=== PATIENT | female | born 1985 | race Caucasian/White ===

== ENCOUNTER → 2018-07-11 17:50 | Outpatient (CLI) | payer OTHER, SELFPAY ==
[2018-07-11 16:39] VITALS: BMI 25.2
[2018-07-11 18:17] LABS: Absolute Lymphocyte Count 2.74 X10^3/ul (0.83-4.51); Absolute Neutrophil Count 7.4 X10^3/uL (2.0-7.7); Basophil# 0.05 X10^3/uL; Basophil% 0.4 % (0-1); Eosinophil# 0.33 X10^3/uL; Eosinophils% 2.9 % (0-5); Hematocrit 38.6 % (37-47); Hemoglobin 13.1 g/dl (12.0-15.0); Lymphocyte # 2.74 X10^3/ul (4.0); Mean Corp Hgb Conc 33.9 g/gl (32-36); Mean Corpuscular Volume 100.3 fL (81-99); Monocyte# 0.88 X10^3/uL; Monocyte% 7.7 % (0-10); Neutrophil # 7.42 X10^3/uL (2.7-7.7); Neutrophil % 64.8 % (47-70); POSITIVE COUNT NO; POSITIVE DIFFERENTIAL NO; POSITIVE MORPHOLOGY NO; Platelet Count 261 K/mm3 (150-450); RBC Distribution Width CV 11.2 % (11.6-14.6); RBC Distribution Width SD 40.3 fl (35.1-43.9); Red Blood Count 3.85 M/mm3 (4.2-5.4); White Blood Count 11.4 K/mm3 (4.4-11.0)
[2018-07-11 19:44] LABS: HIV - WCH Non-Reactive (Nonreactive); Rubella IgG > 500.0 IU/mL
[2018-07-11 20:15] LABS: Chlamydia Trachomatis by PCR Negative (Negative); Neisserai gonorrhoeae by PCR Negative (Negative); Probe Check PASS; Sample Adequacy Control PASS; Specimen Processing Control PASS
[2018-07-14 11:17] LABS: HEPATITIS B SURFACE AG Negative (Negative)
[2018-07-18 02:32] LABS: Rapid Plasmin Reagin (RPR) NONREACTIVE (NONREACTIVE)
[2018-07-18 11:48] LABS: HPV APTIMA, High Risk Negative (Negative)
--- OUTSIDE RECORDS SUMMARY | 2018-09-05 16:36 | XMS RPT_ITS ---
:1985 Author Organization OHIP Care Team Providers Name Role Phone PHILIPPE AUGUST (PA) Attending Unavailable PHILIPPE AUGUST (PA) Attending Unavailable Jennifer Mays Attending Unavailable DOCTOR, OUT OF TOWN Referring Unavailable Jennifer Mays Attending Unavailable Jennifer Mays Referring Unavailable Primay Care Physicia, No Primary Care Unavailable PROBLEMS PROBLEMS DATE TYPE CONDITION / CODE ATTENDING STATUS SOURCE 07/11/2018 Unknown Z34.90 - Encounter Tabatha, Active [place] for supervision of [facility] normal , Hospital unspecified, Repository unspecified trimester / Z34.90(ICD-10) 07/11/2018 Unknown O99.330 - Smoking Tabahta, Active [facility] (tobacco) [facility] complicating Hospital , Repository unspecified trimester / O99.330(ICD-10) 07/11/2018 Unknown O09.91 - Marcanthony, Active [facility] Supervision of [facility] high risk Hospital , Repository unspecified, first trimester / O09.91(ICD-10) 07/11/2018 Unknown Z3A.10 - 10 weeks Tabatha, Active [facility] gestation of [facility] / Hospital Z3A.10(ICD-10) Repository 07/11/2018 Unknown F41.9 - Anxiety Tabatha, Active [facility] disorder, [facility] unspecified / Hospital F41.9(ICD-10) Repository 07/11/2018 Unknown R87.619 - Tabatha, Active [facility] Unspecified [facility] abnormal Hospital cytological Repository findings in specimens from cervix uteri / R87.619(ICD-10) PROCEDURES PROCEDURES No Procedure Records FoundRESULTS RESULTS CBC W/DIFF, AUTOMATED Collected: 07/11/2018 Status: F Source: [place] 6:01 PM [facility] REPOSITORY TYPE CODE TESTS RESULT OUT OF RANGE REFERENCE UNITS LAB L100.1000 4.4-11.0 K/mm3 High WBC 11.4 LAB L100.1200 4.2-5.4 M/mm3 Low RBC 3.85 LAB L100.1300 12.0-15.0 g/dl Normal HGB 13.1 LAB L100.1400 37-47 % Normal HCT 38.6 LAB L100.1500 81-99 fL High MCV 100.3 LAB L100.1600 27.0-32.0 pg High MCH 34.0 LAB L100.1700 32-36 g/gl Normal MCHC 33.9 LAB L100.1810 11.6-14.6 % Low RDW CV 11.2 LAB L100.1820 35.1-43.9 fl Normal RDW SD 40.3 LAB L100.1900 150-450 K/mm3 Normal PLT 261 LAB L100.2000 6.2-12.0 fl Normal MPV 9.0 LAB L100.2100 47-70 % Normal NEUT% 64.8 LAB L100.2200 19-41 % Normal LY% 24.0 LAB L100.2300 0-10 % Normal MONO% 7.7 LAB L100.2400 0-5 % Normal EO% 2.9 LAB L100.2500 0-1 % Normal BASO% 0.4 LAB L100.2550 0.0-0.9 % Normal IM GRAN % 0.200 Result Comment: IG% - Immature Granulocytes (promyelocytes, myelocytes and metamyelocytes) > 1% indicates that a LEFT SHIFT is Present. LAB L100.2620 2.0-7.7 X10 3/uL Normal Absolute Neut 7.4 LAB L100.2720 0.83-4.51 X10 3/ul Normal Absolute Lymph 2.74 Performed By: #### L100.0100 #### [facility] [address] [place], [place], [id number] TYPE AND SCREEN Collected: 07/11/2018 Status: F Source: [place] 6:01 PM [facility] REPOSITORY Order Comment: Reason for Type AND Screen/Red Cells: TYPE CODE TESTS RESULT OUT OF RANGE REFERENCE UNITS LAB B10.0800 AB Normal BLOOD TYPE GEL POSITIVE LAB B100.4000 Normal Antibody NEGATIVE Screen Performed By: #### B101.7450 #### [facility] [address] [place], [address] RUBELLA IGG Collected: 07/11/2018 Status: F [facility] [place] [facility] Order Comment: Comments: PANORAMA SEND OUT TYPE CODE TESTS RESULT OUT OF RANGE REFERENCE UNITS LAB L509.4000 IU/mL Normal Rubella IgG > 500.0 Result Comment: Antibody results Interpretation of Immune Status < 5 IU/ml Presumed Non-immune 5 - < 10 IU/ml Equivocal > or = 10 IU/ml Presumed Immune Performed By: #### L509.4000, L3890.6005 #### [facility] [place], [place], [id number] HIV - [facility] Collected: 07/11/2018 Status: F Source: [place] 6:[facility] Order Comment: Comments: PANORAMA SEND OUT TYPE CODE TESTS RESULT OUT OF RANGE REFERENCE UNITS LAB L3890.6005 Nonreactive Normal HIV - [facility] Non-Reactive Performed By: #### L509.4000, L3890.6005 #### [facility] [address] [place], [place], [address] HEPATITIS B SURFACE Collected: 07/11/2018 Status: F Source: [place] AG 6:01 PM [facility] REPOSITORY TYPE CODE TESTS RESULT OUT OF RANGE REFERENCE UNITS LAB L3100.0400 Negative Normal HB Negative SURF AG Result Comment: Performed at: [address] [id number] Design Consultant: Gagan Wright PhD, Phone: [phone] Performed By: #### L3100.0390 #### [facility] (refer to report for specific site) refer to report for address and phone number RAPID PLASMIN REAGIN Collected: 07/11/2018 Status: F Source: [place] (RPR) 6:01 PM [facility] REPOSITORY TYPE CODE TESTS RESULT OUT OF REFERENCE UNITS RANGE LAB L700.5000 NONREACTIVE NONREACTIVE Normal RPR Performed By: #### L700.5000 #### [facility] [address] [place], [address] SKIN PASS OPERATOR OFFICE VISIT Observed: 07/11/2018 Status: F Source: [place] REPORT 5:34 PM [facility] REPOSITORY [facility] [address] [place] [address] OFFICE VISIT Date of Service: 07/11/18 MR#: [id number] Acct: [id number] Name: MELISA WORTHY Rep #: [id number] : 1985 Provider: Jennifer Mays MD Age/Sex: 33/F Location: [facility] Status: Signed Intake Vital Signs07/11/18 Height 5 ft 2 in 07/11/18 Weight: 138 lb 07/11/18 Body Mass Index (BMI) 25.2 07/11/18 Blood Pressure 100/60 Intake Visit Reasons: NOB LMP 05/01 Chief Complaint: NEW OB Is patient in pain?: No Allergies No Known Allergies Allergy (Unverified 07/11/18 16:41) Medications vitamin#30 30 mg iron-10 mg iron-folic acid 1 mg- omg3 capsule cap PO cap 07/11/18 [History Confirmed 07/11/18] Last Menstral Period: 05/01/18 Zika: Zika virus screening: Negative : No PFSH PFSH Medical History Anxiety and depression (Acute) Surgical History Abscess of right breast (Acute) H/O: knee surgery (Acute) History of left breast biopsy (Acute) Family History Father Cancer bladder and colorectal cancer Arthritis Grandmother PVC (premature ventricular contraction) Cancer cervical Eccentric personality Dementia Mother Multiple sclerosis Uncle Kidney disease Grandfather Parkinsons Heart disease Sister Cancer ovarian Social History Smoking Status: Heavy Smoker (>10/day) alcohol intake: never substance use type: does not use caffeine: Yes what type of physical activity do you participate in: none seatbelt use: always do you feel safe at home: Yes additional social history: [employer] Patient works at [employer] Pregancy History 1 Elective abortions Hx Para 0 Spontaneous abortions HPI NOB LMP 05/01: Details: MELISA WORTHY is a 33 year old who presents for New OB visit. OB Visit Menstrual History Last Menstral Period: 05/01/18 Reported LMP: definite Normal amount/duration: Yes On hormonal BC at conception: No Antepartum Record Genetic Screening: Congenital Heart Defect: Other, Neural Tube Defect: Other, Hemoglobinopathy Or Carrier: Other, Cystic Fibrosis: Other, Chromosome Abnormality: Other, Wilner-Sachs: Other, Hemophilia: Other, Intellectual Disability/Autism: Other, Recurrent Loss/Stillbirth: Other, Other Structural Defect: Other, Other Genetic Disease: Other, Maternal Metabolic Disorder: Other Infection History: Live with someone with TB or Exposed to TB: No, Patient or Partner has history of Genital Herpes: No, Rash or Viral illness since last mentrual period: No, Prior GBS-Infected child: No, History of STD: No, HIV Infection: No, History of Hepatitis: No, Recent travel outside of [place]: No, Concern for Hep exposure: No, Varicella immune: Yes Medical History Medical History: Positive: Psychiatric, Operations/hospitalizations, Negative: Diabetes, Hypertension, Heart disease, Auto-immune disorder, Kidney disease/UTI, Neurologic/epilepsy, Depression/ depression, Hepatitis/liver disease, Varicosities/phlebitis, Thyroid dysfunction, Trauma/domestic violence, History of blood transfusions, D (Rh) Sensitized, Pulmonary (e.g.,TB,Asthma), Seasonal allergies, Drug/latex allergies/reactions, Breast, Machine Rug Cleaner surgery, Anesthetic complications, History of abnormal pap, Uterine anomaly/douglas, Infertility, Anti-retroviral treatment, Relevant family history, Other ACOG First Trimester First Trimester: Desire for , Alcohol, Tobacco Cessation, Illicit/Recreational Drug/Substance Use, Intimate Partner Violence, Barriers to care, Unstable Housing, Communication Barriers, Environmental/Work Hazards, Anticipated Course of Care, Nurtrition and weight gain, Toxoplasmosis Precations, Use of Any medications, Sexual activity, Exercise, Dental Care, Sauna/Hot tub use, Seat Belt use, Childbirth classes/Hospital facilities, , Travel, Indications for [place] and Screening for Aneuploidy ROS Const Denies fever(s), Reports system reviewed and no additional complaints, except as docu, Reports fatigue Eyes Reports system reviewed and no additional complaints, except as docu ENT Reports system reviewed and no additional complaints, except as docu Card Denies chest pain, Denies shortness of breath Resp Reports system reviewed and no additional complaints, except as docu, Denies shortness of breath, Denies cough GI Reports nausea, Denies abdominal pain Reports system reviewed and no additional complaints, except as docu Musc Reports system reviewed and no additional complaints, except as docu Skin/Breast Reports system reviewed and no additional complaints, except as docu Neuro Yes system reviewed and no additional complaints, except as docu Psych Reports system reviewed and no additional complaints, except as docu Endo Reports fatigue, Reports system reviewed and no additional complaints, except as docu Exam Const General: healthy appearing, comfortable, no acute distress Orientation: alert [facility] Head: normal to inspection, atraumatic, normocephalic Ears: external ears normal, hearing grossly normal bilaterally Nose: nares normal, external nose normal Mouth: oral mucosae normal Teeth and gingiva: dentition normal Eyes General: appearance normal, both eyes and all related structures Neck Neck: no lymphadenopathy, supple, normal visual inspection Thyroid: thyroid normal Chest Chest palpation AND inspection: normal inspection of the chest Breast inspection: normal inspection of the breasts, normal inspection of the axillae Breast palpation: normal palpation of the breasts, normal palpation of the axillae Resp Effort AND Inspection: normal respiratory effort GI Inspection: normal to inspection Palpation: soft, no hepatosplenomegaly General: bladder normal to palpation External Female Exam: normal external appearance, normal appearance of the urethra Urethra: normal appearance of the urethra Speculum Exam - Vagina: normal appearance of the vagina, normal vaginal discharge Speculum Exam - Cervix: normal appearance of the cervix Bimanual Exam- Vagina AND Uterus: bladder normal to palpation, normal bimanual exam, uterus non-tender, other Bimanual Exam- Adnexa, other: adnexae non-tender Skin General: no rashes or lesions noted Neuro Motor: muscle tone normal throughout, no movement abnormalities noted Extrem General: normal to inspection, full ROM Assessment AND Plan Problems 1. Tobacco use affecting , antepartum O99.330 recommend cessation 2. Supervision of high risk in first trimester O09.91 RONY 02/05/19 3. 10 weeks gestation of Z3A.10 NIPT ordered. 4. Anxiety F41.9 no meds 5. Abnormal cervical Papanicolaou smear, unspecified abnormal pap finding R87.619 Plan ACOG trimester education reviewed and updated. see problem list details for updated plan management information and see below for orders placed at this visit. GA appropriate handout given. Orders Orders: Supplemental Info ACOG book given and patient encouraged to read about nutrition, exercise, weight gain, and food avoidance in . Coding Level of Care Code OB Routine Diagnoses Tobacco use affecting , antepartum O99.330 Supervision of high risk in first trimester O09.91 Trimester: first trimester 10 weeks gestation of Z3A.10 Weeks of gestation: 10 weeks Anxiety F41.9 Abnormal cervical Papanicolaou smear, unspecified abnormal pap finding R87.619 Abnormal Pap type: unspecified 07/11/18 1734 <Electronically signed by Jennifer Mays MD> Date Jennifer Mays MD Cosigner Signature: Date (if applicable) CC: CT/NG [facility] BY PCR Collected: 07/11/2018 Status: F Source: [place] 4:20 PM [facility] REPOSITORY TYPE CODE TESTS RESULT OUT OF RANGE REFERENCE UNITS LAB L8200.2100 Negative Normal Chlam Negative Trac PCR LAB L8200.2200 Negative Normal NG by Negative PCR Performed By: #### L8200.2000 #### [facility] [address] [place] [place], [address] PAP IG HPV APTIMA Collected: 07/11/2018 Status: F Source: [place] ,45 4:20 PM [facility] REPOSITORY Order Comment: CYTOLOGY INFORMATION: - CLINICAL INFORMATION: - DATE LMP/MENOPAUSE: - COLLECTION VIAL: Thin Prep Vial - LIFE SCIENCE TAXONOMIST SOURCE: CERVICAL - COLLECTION TECHNIQUE: CX BROOM ONLY Specimen Comment: No. of containers..01 ThinPrep Vial TYPE CODE TESTS RESULT OUT OF RANGE REFERENCE UNITS LAB L7400.0800 . Normal DIAGN Comment Result Comment: NEGATIVE FOR INTRAEPITHELIAL LESION AND MALIGNANCY. LAB L7400.0900 . Normal ADEQ Comment Result Comment: Satisfactory for evaluation. Endocervical and/or squamous metaplastic cells (endocervical component) are present. LAB L7400.1400 . Normal PERFORM Comment Result Comment: Jerry Haynes, Service Operator (ASCP) LAB L7400.2575 . Normal TEST METHOD Comment Result Comment: This liquid based ThinPrep(R) pap test was screened with the use of an image guided system. LAB L7400.2600 . Normal . COMM LAB L7400.2700 . Normal PAPSMR Comment Result Comment: The Pap smear is a screening test designed to aid in the detection of premalignant and malignant conditions of the uterine cervix. It is not a diagnostic procedure and should not be used as the sole means of detecting cervical cancer. Both false-positive and false-negative reports do occur. LAB L7400.2760 Negative Normal HPV APTIMA, Negative HR Result Comment: This test detects fourteen high-risk HPV types (16/18/31/33/35/39/45/ 51/52/56/58/59/66/68) without differentiation. Performed at: - [facility] [id number] Design Consultant: Lulu Saravia MD, Phone: [phone] Performed at: =[facility] [id number] Design Consultant: Lulu Saravia MD, Phone: [phone] Performed By: #### L7400.0280 #### [facility] (refer to report for specific site) refer to report for address and phone number CNOV Observed: 01/19/2018 Status: COMPLETED Source: [place] 11:45 AM [facility] REPOSITORY [facility] MELISA WORTHY ([id number]) 1985 F Date Time Provider Department 01/19/18 11:45 AM LENA FISHER (KARY) [facility] During your visit today, we recorded the following information about you: Temperature Pulse Blood pressure Weight 98.2 degrees 72/minute 116/70 61.2 kg Lena Fisher APRN.CNP 01/19/2018 11:44 AM Signed Subjective HPI HPI Melisa Worthy is a 32 year old female who presents today for CC of bilateral eye drainage/redness. This started today. Has tried nothing. Symptoms are worsened by nothing. Risk factors none known. 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 FAMILY HISTORY Problem Relation Age of Onset - Cancer Mother at 52 of ovarian CA primary with breast mets. - Multiple Sclerosis Mother - Hypertension Paternal Grandmother - Heart Paternal Grandmother a fib - Multiple Sclerosis Brother - Colon Cancer Paternal Grandfather Social History Substance Use Topics - Smoking status: Current Every Day Smoker Packs/day: 1.00 Years: 9.00 Types: Cigarettes - Smokeless tobacco: Never Used - Alcohol use 0.0 oz/week Comment: occas social Review of Systems Constitutional: Negative for chills and fever. HENT: Negative for ear discharge, ear pain and sore throat. Eyes: Positive for discharge and redness. Negative for blurred vision, double vision, photophobia and pain. Neurological: Negative for headaches. Objective Blood pressure 116/70, pulse 72, temperature 36.8 ?C (98.2 ?F), temperature source Tympanic, weight 61.2 kg (135 lb). Physical Exam Constitutional: She is oriented to person, place, and time and well-developed, well-nourished, and in no distress. Vital signs are normal. Non-toxic appearance. She does not have a sickly appearance. No distress. HENT: Right Ear: Hearing, tympanic membrane and external ear normal. Left Ear: Hearing, tympanic membrane, external ear and ear canal normal. Nose: No mucosal edema or sinus tenderness. Mouth/Throat: Uvula is midline, oropharynx is clear and moist and mucous membranes are normal. Eyes: Right eye exhibits discharge (scant). Left eye exhibits discharge (scant). Right conjunctiva is injected. Left conjunctiva is injected. Lymphadenopathy: Right cervical: No superficial cervical adenopathy present. Left cervical: No superficial cervical adenopathy present. No cervical lymphadenopathy bilaterally Neurological: She is oriented to person, place, and time. Prescription instructions reviewed with patient as applicable. Patient advised if symptoms do not improve or if symptoms worsen sooner, to contact the office for further evaluation by their primary care physician. Potential red flag symptoms discussed with the patient. Reviewed appropriate action plan to take if red flag symptoms occur. Patient agreeable to treatment plan. Lena Fisher APRN.KARY Fisher APRN.CNP 01/19/2018 11:41 AM Signed [facility] PATIENT INFO CONJUNCTIVITIS OVERVIEW Conjunctivitis, also called pinkeye, is defined as an inflammation of the conjunctiva. The conjunctiva is the thin membrane that lines the inner surface of the eyelids and the whites of the eyes (called the sclera). Conjunctivitis can affect children and adults. The most common symptoms of conjunctivitis include a red eye and discharge. There are many potential causes of conjunctivitis, including bacterial or viral infections, allergies, or a non-specific condition (eg, a foreign body in the eye). All types of conjunctivitis cause a red eye, although not everyone with a red eye has conjunctivitis. TYPES OF CONJUNCTIVITIS There are four main types of conjunctivitis: bacterial, viral, allergic, and non-specific. Most cases of infectious conjunctivitis are viral in adults and children; however, bacterial conjunctivitis is more common in children than in adults. Viral conjunctivitis ? Viral conjunctivitis is typically caused by a virus that can also cause the common cold. A person may have symptoms of conjunctivitis alone, or as part of a general cold syndrome, with swollen lymph nodes (glands), fever, a sore throat, and runny nose. Viral conjunctivitis is highly contagious. It is spread by contact, usually with objects which have come into contact with the infected person's eye secretions. As examples, the virus can be transmitted when an infected person touches their eye and then touches another surface (eg, door handle) or shares an object that has touched their eye (eg, a towel or pillow case). The most common symptoms of viral conjunctivitis include redness, watery or mucus discharge, and a burning, ze, or gritty feeling in one eye. Some people have morning crusting followed by watery discharge, perhaps with some scant mucus discharge throughout the day. The second eye usually becomes infected within 24 to 48 hours. There is no cure for viral conjunctivitis. Recovery can begin within days, although the symptoms frequently get worse for the first three to five days, with gradual improvement over the following one to two weeks for a total course of two to three weeks. Some people experience morning crusting that continues for up to two weeks after the initial symptoms, although the daytime redness, irritation, and tearing should be much improved. Bacterial conjunctivitis ? Bacterial conjunctivitis is highly contagious, often affecting multiple family members or children within a classroom. Bacterial conjunctivitis is spread by contact, usually with objects which have come into contact with the infected person's eye secretions. As examples, the virus can be transmitted when an infected person touches their eye and then touches another surface (eg, door handle) or shares an object that has touched their eye (eg, a towel or pillow case). The most common symptoms of bacterial conjunctivitis include redness and thick discharge from one eye, although both eyes can become infected. The discharge may be yellow, white, or green, and it usually continues to drain throughout the day. The affected eye often is stuck shut in the morning. Most types of bacterial conjunctivitis resolve quickly and cause no permanent damage when treated with antibiotic eye drops or ointment Non-specific conjunctivitis ? It is possible to develop a red eye and discharge that is not caused by an infection or allergy. The most common causes include one of the following. ? People with a dry eye may have chronic or intermittent redness or discharge. A person whose eyes are irrigated after a chemical splash may have redness and discharge. ? A person with a foreign body (eg, dust, eyelash) in the eye may have redness and discharge for 12 to 24 hours after the object is removed. All of these problems generally improve spontaneously within 24 hours. CONJUNCTIVITIS TREATMENT The treatment of conjunctivitis depends upon the cause. For this reason, it is important to have the correct diagnosis before treatment begins. Viral conjunctivitis treatment ? A topical antihistamine/decongestant eye drop may help to relieve the itching and irritation of viral conjunctivitis. These drops are available without a prescription in most pharmacies. However, particular care must be taken to avoid spreading viral infections from one eye to the other ? apply drops only to affected eye and wash hands thoroughly after application. Similar to cold medicines, this treatment may reduce the symptoms but does not shorten the course of the infection. Another option is to use warm or cool compresses, as needed. The irritation and discharge may get worse for three to five days before getting better, and symptoms can persist for two to three weeks. Bacterial conjunctivitis treatment ? Bacterial conjunctivitis is usually treated with an antibiotic eye drop or ointment. When started early, treatment helps to shorten the duration of symptoms, although most cases do resolve spontaneously if no treatment is used. Adults ? Adults are usually treated with an antibiotic eye drop or ointment for five to seven days. Redness, irritation, and eye discharge should begin to improve within 24 to 48 hours. If there is no improvement or if the condition worsens within this time, the person should be evaluated by an director of catering. Contact lens wearers ? People who wear contact lenses should be evaluated by a healthcare provider before treatment begins; this is to confirm the diagnosis of conjunctivitis and to be sure that another, more serious condition related to contact lens use (an infection of the cornea), is not present. People who wear contact lenses should avoid wearing the lenses during the first 24 hours of treatment, or until the eye is no longer red. The contact case should be thrown away and the contacts disinfected overnight or replaced (if disposable). Return to work/school ? The safest approach to avoid spreading viral and bacterial conjunctivitis to others is to stay home until there is no longer any discharge from the eye(s). However, this is not practical for most students and for those who work outside the home. Most daycare centers and schools require that students receive 24 hours of eye drops or ointment before returning to school. This treatment helps to prevent the spread of bacterial conjunctivitis, but is not necessary or helpful for children with viral conjunctivitis. Viral conjunctivitis is similar to a cold because it spreads easily between people. Younger children, who may not remember to wash their hands or avoid touching their eyes, should probably not attend school until the discharge has resolved. Older students or adults may choose to attend school/work, although they should limit close contact with others. In addition, adults who have contact with the very old, the very young, and people with a weakened immune system should limit contact with these susceptible individuals. Non-specific conjunctivitis treatment ? The conjunctiva heals quickly after it is injured, and non-specific conjunctivitis usually resolves within a few days without any treatment. However, the eye may feel better faster when it is treated with a lubricant, such as drops or ointments. These products are available without a prescription in most pharmacies. Preservative-free preparations are more expensive and are necessary only for people with a severe case of dry eye and those who are allergic to preservatives. Lubricant drops can be used as often as hourly with no side effects. The ointment provides longer lasting relief but blurs vision temporarily. For this reason, some people use ointment only at bedtime. It may be worthwhile to switch brands if one brand of drop or ointment is irritating, since each preparation contains different active and inactive ingredients and preservatives. Antibiotic or steroid eye drops/ointments are not recommended unless there is a specific reason they are needed (eg, a bacterial infection or inflammatory condition). Using these treatments when they are not needed can lead to serious complications. If the symptoms of conjunctivitis do not improve within two weeks, an examination with an director of catering may be recommended. CONJUNCTIVITIS PREVENTION Bacterial and viral conjunctivitis are both highly contagious and spread by direct contact with secretions or contact with contaminated objects. Simple hygiene measures can help minimize transmission to others. ? Adults or children with bacterial or viral conjunctivitis should not share handkerchiefs, tissues, towels, cosmetics, or bed sheets/pillows with uninfected family or friends. ? Hand washing is an essential and highly effective way to prevent the spread of infection. Hands should be wet with water and plain soap, and rubbed together for 15 to 30 seconds. It is not necessary to use antibacterial hand soap. Teach children to wash their hands before and after eating and after touching the eyes, coughing, or sneezing. ? Alcohol-based hand rubs are a good alternative for disinfecting hands if a sink is not available. Hand rubs should be spread over the entire surface of hands, fingers, and wrists until dry, and may be used several times. These rubs can be used repeatedly without skin irritation or loss of effectiveness. Referring Provider: SELF [200] Allergies As of Date: 01/19/2018 Noted Allergy Reaction POLLEN 12/25/2007 5 - Intolerance Comments: Sneezing, runny nose Date Reviewed: 01/19/2018 Reviewed by: Lena Fisher - Fully Assessed Reason for Visit: Eye Problem [43] Cmt: bilateral eye redness and crusty X this morning Primary Visit Diagnosis:Conjunctivitis of both eyes, unspecified conjunctivitis type [H10.9] Order(s):ciprofloxacin HCl (CILOXAN) 0.3 % ophthalmic solutionUse 1-2 Drops in both eyes four times daily for 5 days.Disp: 1 BottleRfl: 0 Prescriptions as of 01/19/2018 Sig: CIPROFLOXACIN 0.3 % EYE DROPS Use 1-2 Drops in both eyes fo* Problem List As Of Date 01/19/2018 Noted Resolved DEPRESSIVE DISORDER NEC [F32.9] INVALID FOR* ANXIETY STATE NOS [F41.1] INVALID FOR* DYSMENORRHEA [N94.6] INVALID FOR* ALLERGIC RHINITIS NOS [J30.9] INVALID FOR* GENITAL WARTS NOS [B07.8] INVALID FOR* Other instructions from your clinician: [facility] PATIENT INFO CONJUNCTIVITIS OVERVIEW Conjunctivitis, also called pinkeye, is defined as an inflammation of the conjunctiva. The conjunctiva is the thin membrane that lines the inner surface of the eyelids and the whites of the eyes (called the sclera). Conjunctivitis can affect children and adults. The most common symptoms of conjunctivitis include a red eye and discharge. There are many potential causes of conjunctivitis, including bacterial or viral infections, allergies, or a non-specific condition (eg, a foreign body in the eye). All types of conjunctivitis cause a red eye, although not everyone with a red eye has conjunctivitis. TYPES OF CONJUNCTIVITIS There are four main types of conjunctivitis: bacterial, viral, allergic, and non-specific. Most cases of infectious conjunctivitis are viral in adults and children; however, bacterial conjunctivitis is more common in children than in adults. Viral conjunctivitis ? Viral conjunctivitis is typically caused by a virus that can also cause the common cold. A person may have symptoms of conjunctivitis alone, or as part of a general cold syndrome, with swollen lymph nodes (glands), fever, a sore throat, and runny nose. Viral conjunctivitis is highly contagious. It is spread by contact, usually with objects which have come into contact with the infected person's eye secretions. As examples, the virus can be transmitted when an infected person touches their eye and then touches another surface (eg, door handle) or shares an object that has touched their eye (eg, a towel or pillow case). The most common symptoms of viral conjunctivitis include redness, watery or mucus discharge, and a burning, ze, or gritty feeling in one eye. Some people have morning crusting followed by watery discharge, perhaps with some scant mucus discharge throughout the day. The second eye usually becomes infected within 24 to 48 hours. There is no cure for viral conjunctivitis. Recovery can begin within days, although the symptoms frequently get worse for the first three to five days, with gradual improvement over the following one to two weeks for a total course of two to three weeks. Some people experience morning crusting that continues for up to two weeks after the initial symptoms, although the daytime redness, irritation, and tearing should be much improved. Bacterial conjunctivitis ? Bacterial conjunctivitis is highly contagious, often affecting multiple family members or children within a classroom. Bacterial conjunctivitis is spread by contact, usually with objects which have come into contact with the infected person's eye secretions. As examples, the virus can be transmitted when an infected person touches their eye and then touches another surface (eg, door handle) or shares an object that has touched their eye (eg, a towel or pillow case). The most common symptoms of bacterial conjunctivitis include redness and thick discharge from one eye, although both eyes can become infected. The discharge may be yellow, white, or green, and it usually continues to drain throughout the day. The affected eye often is stuck shut in the morning. Most types of bacterial conjunctivitis resolve quickly and cause no permanent damage when treated with antibiotic eye drops or ointment Non-specific conjunctivitis ? It is possible to develop a red eye and discharge that is not caused by an infection or allergy. The most common causes include one of the following. ? People with a dry eye may have chronic or intermittent redness or discharge. A person whose eyes are irrigated after a chemical splash may have redness and discharge. ? A person with a foreign body (eg, dust, eyelash) in the eye may have redness and discharge for 12 to 24 hours after the object is removed. All of these problems generally improve spontaneously within 24 hours. CONJUNCTIVITIS TREATMENT The treatment of conjunctivitis depends upon the cause. For this reason, it is important to have the correct diagnosis before treatment begins. Viral conjunctivitis treatment ? A topical antihistamine/decongestant eye drop may help to relieve the itching and irritation of viral conjunctivitis. These drops are available without a prescription in most pharmacies. However, particular care must be taken to avoid spreading viral infections from one eye to the other ? apply drops only to affected eye and wash hands thoroughly after application. Similar to cold medicines, this treatment may reduce the symptoms but does not shorten the course of the infection. Another option is to use warm or cool compresses, as needed. The irritation and discharge may get worse for three to five days before getting better, and symptoms can persist for two to three weeks. Bacterial conjunctivitis treatment ? Bacterial conjunctivitis is usually treated with an antibiotic eye drop or ointment. When started early, treatment helps to shorten the duration of symptoms, although most cases do resolve spontaneously if no treatment is used. Adults ? Adults are usually treated with an antibiotic eye drop or ointment for five to seven days. Redness, irritation, and eye discharge should begin to improve within 24 to 48 hours. If there is no improvement or if the condition worsens within this time, the person should be evaluated by an director of catering. Contact lens wearers ? People who wear contact lenses should be evaluated by a healthcare provider before treatment begins; this is to confirm the diagnosis of conjunctivitis and to be sure that another, more serious condition related to contact lens use (an infection of the cornea), is not present. People who wear contact lenses should avoid wearing the lenses during the first 24 hours of treatment, or until the eye is no longer red. The contact case should be thrown away and the contacts disinfected overnight or replaced (if disposable). Return to work/school ? The safest approach to avoid spreading viral and bacterial conjunctivitis to others is to stay home until there is no longer any discharge from the eye(s). However, this is not practical for most students and for those who work outside the home. Most daycare centers and schools require that students receive 24 hours of eye drops or ointment before returning to school. This treatment helps to prevent the spread of bacterial conjunctivitis, but is not necessary or helpful for children with viral conjunctivitis. Viral conjunctivitis is similar to a cold because it spreads easily between people. Younger children, who may not remember to wash their hands or avoid touching their eyes, should probably not attend school until the discharge has resolved. Older students or adults may choose to attend school/work, although they should limit close contact with others. In addition, adults who have contact with the very old, the very young, and people with a weakened immune system should limit contact with these susceptible individuals. Non-specific conjunctivitis treatment ? The conjunctiva heals quickly after it is injured, and non-specific conjunctivitis usually resolves within a few days without any treatment. However, the eye may feel better faster when it is treated with a lubricant, such as drops or ointments. These products are available without a prescription in most pharmacies. Preservative-free preparations are more expensive and are necessary only for people with a severe case of dry eye and those who are allergic to preservatives. Lubricant drops can be used as often as hourly with no side effects. The ointment provides longer lasting relief but blurs vision temporarily. For this reason, some people use ointment only at bedtime. It may be worthwhile to switch brands if one brand of drop or ointment is irritating, since each preparation contains different active and inactive ingredients and preservatives. Antibiotic or steroid eye drops/ointments are not recommended unless there is a specific reason they are needed (eg, a bacterial infection or inflammatory condition). Using these treatments when they are not needed can lead to serious complications. If the symptoms of conjunctivitis do not improve within two weeks, an examination with an director of catering may be recommended. CONJUNCTIVITIS PREVENTION Bacterial and viral conjunctivitis are both highly contagious and spread by direct contact with secretions or contact with contaminated objects. Simple hygiene measures can help minimize transmission to others. ? Adults or children with bacterial or viral conjunctivitis should not share handkerchiefs, tissues, towels, cosmetics, or bed sheets/pillows with uninfected family or friends. ? Hand washing is an essential and highly effective way to prevent the spread of infection. Hands should be wet with water and plain soap, and rubbed together for 15 to 30 seconds. It is not necessary to use antibacterial hand soap. Teach children to wash their hands before and after eating and after touching the eyes, coughing, or sneezing. ? Alcohol-based hand rubs are a good alternative for disinfecting hands if a sink is not available. Hand rubs should be spread over the entire surface of hands, fingers, and wrists until dry, and may be used several times. These rubs can be used repeatedly without skin irritation or loss of effectiveness. Prescriptions ordered this encounter Disp Refills Start End CIPROFLOXACIN 0.3 % EYE DROPS 1 Janak* 0 01/19/2018 01/24/2018 Route: BOTH EYES Sig: Use 1-2 Drops in both eyes four times daily for 5 days. Encounter Status:Closed by LENA FISHER CNP on 01/19/18 PROGRESS Observed: 01/19/2018 Status: COMPLETED Source: [place] 11:36 AM [facility] REPOSITORY O ID: [id number] Author: Lena Botello) Service: (none) Author Type: Nurse Practitioner Type: Progress Notes Filed: 01/19/2018 11:44 AM Note Text: Subjective HPI HPI Melisa Worthy is a 32 year old female who presents today for CC of bilateral eye drainage/redness. This started today. Has tried nothing. Symptoms are worsened by nothing. Risk factors none known. 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 FAMILY HISTORY Problem Relation Age of Onset - Cancer Mother at 52 of ovarian CA primary with breast mets. - Multiple Sclerosis Mother - Hypertension Paternal Grandmother - Heart Paternal Grandmother a fib - Multiple Sclerosis Brother - Colon Cancer Paternal Grandfather Social History Substance Use Topics - Smoking status: Current Every Day Smoker Packs/day: 1.00 Years: 9.00 Types: Cigarettes - Smokeless tobacco: Never Used - Alcohol use 0.0 oz/week Comment: occas social Review of Systems Constitutional: Negative for chills and fever. HENT: Negative for ear discharge, ear pain and sore throat. Eyes: Positive for discharge and redness. Negative for blurred vision, double vision, photophobia and pain. Neurological: Negative for headaches. Objective Blood pressure 116/70, pulse 72, temperature 36.8 ?C (98.2 ?F), temperature source Tympanic, weight 61.2 kg (135 lb). Physical Exam Constitutional: She is oriented to person, place, and time and well-developed, well-nourished, and in no distress. Vital signs are normal. Non-toxic appearance. She does not have a sickly appearance. No distress. HENT: Right Ear: Hearing, tympanic membrane and external ear normal. Left Ear: Hearing, tympanic membrane, external ear and ear canal normal. Nose: No mucosal edema or sinus tenderness. Mouth/Throat: Uvula is midline, oropharynx is clear and moist and mucous membranes are normal. Eyes: Right eye exhibits discharge (scant). Left eye exhibits discharge (scant). Right conjunctiva is injected. Left conjunctiva is injected. Lymphadenopathy: Right cervical: No superficial cervical adenopathy present. Left cervical: No superficial cervical adenopathy present. No cervical lymphadenopathy bilaterally Neurological: She is oriented to person, place, and time. Prescription instructions reviewed with patient as applicable. Patient advised if symptoms do not improve or if symptoms worsen sooner, to contact the office for further evaluation by their primary care physician. Potential red flag symptoms discussed with the patient. Reviewed appropriate action plan to take if red flag symptoms occur. Patient agreeable to treatment plan. Lena Fisher APRN.KARY PROGRESS Observed: 10/22/2017 Status: COMPLETED Source: [place] 3:36 PM [facility] REPOSITORY O ID: [id number] Author: Philippe August (Pa) Service: (none) Author Type: Physician Rn Clinical Resource Type: Progress Notes Filed: 10/22/2017 3:41 PM Note Text: FOLLOW UP VISIT - ABSCESS NAME: Melisa Dowd Deacon [facility] NO.: [id number] DATE OF SERVICE: 10/21/2017 : 1985 REFERRING PHYSICIAN: No Pcp Melisa is a patient I am following for an abscess on her right breast. I performed an incision and drainage of the right breast abscess on 10/14/17, she was noted to have a ruptured infected sebaceous cyst which was debrided. The patient notes no complaints of fever since the procedure. Pain has been minimal. VITALS: Last menstrual period 09/27/2017. On examination, the incision site is viable with no drainage noted. Assessment IMPRESSION: Status post incision and drainage of right breast abscess/infected sebaceous cyst PLAN: If there are any problems or signs of worsening wound infection, the patient is to contact me immediately. Dressing should be changed once daily or more often if it becomes soaked. We discussed possibility of cyst recurrence, patient instructed to follow up if a new cyst forms in this area for definitive excision. Of note patient is also due for follow-up ultrasound imaging of the left breast per Dr. Ng as she had a biopsy last year. I have discussed this with the patient who stated she will have this done. Diagnoses: (L72.3, L08.9) Infected sebaceous cyst (primary encounter diagnosis) Return to Clinic: The patient is instructed to follow- up with me as needed. Philippe August PA-C CNOV Observed: 10/21/2017 Status: COMPLETED Source: [place] 3:15 PM [facility] REPOSITORY Office Visit (GENSWS) MELISA WORTHY ([id number]) 1985 F Date Time Provider Department 10/21/17 3:15 PM PHILIPPE AUGUST (PA) [facility] During your visit today, we recorded the following information about you: Philippe August PA-C 10/22/2017 3:41 PM Signed FOLLOW UP VISIT - ABSCESS NAME: Melisafarheen Worthy CLINIC NO.: [id number] DATE OF SERVICE: 10/21/2017 : 1985 REFERRING PHYSICIAN: No Pcp Melisa is a patient I am following for an abscess on her right breast. I performed an incision and drainage of the right breast abscess on 10/14/17, she was noted to have a ruptured infected sebaceous cyst which was debrided. The patient notes no complaints of fever since the procedure. Pain has been minimal. VITALS: Last menstrual period 09/27/2017. On examination, the incision site is viable with no drainage noted. Assessment IMPRESSION: Status post incision and drainage of right breast abscess/infected sebaceous cyst PLAN: If there are any problems or signs of worsening wound infection, the patient is to contact me immediately. Dressing should be changed once daily or more often if it becomes soaked. We discussed possibility of cyst recurrence, patient instructed to follow up if a new cyst forms in this area for definitive excision. Of note patient is also due for follow-up ultrasound imaging of the left breast per Dr. Ng as she had a biopsy last year. I have discussed this with the patient who stated she will have this done. Diagnoses: (L72.3, L08.9) Infected sebaceous cyst (primary encounter diagnosis) Return to Clinic: The patient is instructed to follow- up with me as needed. Philippe August PA-C Referring Provider: SELF [200] Allergies As of Date: 10/21/2017 Noted Allergy Reaction POLLEN 12/25/2007 5 - Intolerance Comments: Sneezing, runny nose Date Reviewed: 10/21/2017 Reviewed by: Henry Hollis LPN - Fully Assessed Reason for Visit: Established Patient [175] Cmt: 1 wk f/u Rt breast Primary Visit Diagnosis:Infected sebaceous cyst [L72.3, L08.9] Problem List As Of Date 10/21/2017 Noted Resolved DEPRESSIVE DISORDER NEC [F32.9] INVALID FOR* ANXIETY STATE NOS [F41.1] INVALID FOR* DYSMENORRHEA [N94.6] INVALID FOR* ALLERGIC RHINITIS NOS [J30.9] INVALID FOR* GENITAL WARTS NOS [B07.8] INVALID FOR* Follow-up and Disposition History Recorded Encounter Status:Closed by PHILIPPE AUGUST PA-C on 10/22/17 PROGRESS Observed: 10/14/2017 Status: COMPLETED Source: [facility] 5:08 PM [facility] HNO ID: [id number] Author: Philippe August (Pa) Service: (none) Author Type: Physician Rn Clinical Resource Type: Progress Notes Filed: 10/14/2017 5:14 PM Note Text: HISTORY AND PHYSICAL Melisa Worthy 1985 REFERRING PHYSICIAN: Self CHIEF COMPLAINT: Right breast abscess HPI: Melisa is a 32 year old female with a complaint of a right breast abscess x 6 days. She reports a history of prior breast infection in this same area last year, has had intermittent flare-ups since that time which resolved on their own until this most recent episode. She NOTES purulent discharge from the abscess. She denies a history of diabetes or wound healing issues. The patient was seen at urgent care and was started on oral antibiotics. She notes the area has become increasingly erythematous, enlarged and tender despite the antibiotics. She denies fever or chills. 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 Disp: 20 tablet Rfl: 0 No current facility-administered medications for this visit. 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 - Multiple Sclerosis Mother - Hypertension Paternal Grandmother - Heart Paternal Grandmother a fib - Multiple Sclerosis Brother - Colon Cancer Paternal Grandfather REVIEW OF SYMPTOMS: The review of systems data was entered by the nurse and reviewed by me Nursing Notes: Anastasia Knight LPN 10/14/2017 3:36 PM Signed INFORMED CONSENT Melisa Worthy Medical Record: [id number] Procedure:right breast abcess The risks, benefits and anticipated outcomes of the procedure, the risks and benefits of the alternatives to the procedure and the roles and tasks of the personnel to be involved were discussed with the patient and the patient consents to the procedure and agrees to proceed. I verify that I personally obtained Melisa Dowd Deacon's consent. Anastasia Knight LPN October 14, 2017 3:25 PM Dept of GENERAL SURGERY [employer]ERSAL PROTOCOL / SAFETY CHECKLIST Procedure to be performed: right breast abcess Sign in Communication: Completed Time Out: Team Confirms the Correct Patient, Correct Procedure, Correct Site and Site Marking, Correct Position (if applicable), Prep and Dry Time (if applicable). Time: 325 pm Affirmation of Time Out: YES Sign Out Discussion: Completed Anastasia Knight LPN PHYSICAL EXAMINATION: General: The patient is 32 year old female, well nourished, well hydrated in no acute distress. The patient is oriented to time, place, and person. VITALS: Last menstrual period 09/27/2017. There is no height or weight on file to calculate BMI. HEENT: exam deferred Respiratory: exam deferred Cardiac: exam deferred. Abdominal exam: exam deferred Rectal exam: exam deferred Extremities: no clubbing, cyanosis or edema. No adenopathy. Other: right breast Abscess - + 2cm x 3cm area of fluctuance with overlying erythema and central draining sinus. The skin overlying the point of maximal fluctance is viable. LABORATORY VALUES: As Noted RADIOLOGIC STUDIES: As Noted PROCEDURE: INCISION AND DRAINAGE OF right breast ABSCESS After consent was obtained and the site, person, and procedure verified, the patient`s skin was prepped and draped in the usual fashion. A combination of Lidocaine and Marcaine was injected into the skin. A linear incision was made over the point of maximal fluctuance. A large amount of purulent material as well as what appeared to be ruptured sebaceous cyst contents were drained from the wound. The abscess was then unroofed. The cavity was packed with iodoform gauze. The patient tolerated the procedure well. Assessment IMPRESSION: STATUS POST INCISION AND DRAINAGE OF right breast ABSCESS PLAN: Melisa is instructed to remove packing tomorrow and cover with dry gauze dressing. If the dressing becomes soaked or had significant drainage, the dressing should be changed. If there is minor bleeding from this skin edge, the patient should hold pressure on the incision. If there is continued bleeding, the patient should contact our office immediately. The patient should wash the wound with gentle soap and water. she may shower. The wound should not be immersed in a pool, bathtub, or even hot tub. Diagnoses: (N61.1) Breast abscess (primary encounter diagnosis) (L72.3) Sebaceous cyst Return to Clinic: The patient is instructed to follow-up with me in one week. Philippe August PA-C WOUND Observed: 10/14/2017 Status: F Source: [place] CULTURE/STAIN 3:43 PM [facility] REPOSITORY Sp. Request/Comment: - Swab Smear Result - No organisms seen Many Polymorphonuclear leukocytes Culture Result - No growth 3 days Performed By: #### WCUL #### [facility] [address], [place] [address] CNOV Observed: 10/14/2017 Status: COMPLETED Source: [place] 3:00 PM [facility] REPOSITORY Office Visit (GENSWS) MELISA WORTHY ([id number]) 1985 F Date Time Provider Department 10/14/17 3:00 PM PHILIPPE AUGUST) GENSWS During your visit today, we recorded the following information about you: Anastasia Knight LPN 10/14/2017 3:36 PM Signed INFORMED CONSENT Melisa Worthy Medical Record: [id number] Procedure:right breast abcess The risks, benefits and anticipated outcomes of the procedure, the risks and benefits of the alternatives to the procedure and the roles and tasks of the personnel to be involved were discussed with the patient and the patient consents to the procedure and agrees to proceed. I verify that I personally obtained Melisa Worthy's consent. Anastasia Knight LPN October 14, 2017 3:25 PM Dept of GENERAL SURGERY UNIVERSAL PROTOCOL / SAFETY CHECKLIST Procedure to be performed: right breast abcess Sign in Communication: Completed Time Out: Team Confirms the Correct Patient, Correct Procedure, Correct Site and Site Marking, Correct Position (if applicable), Prep and Dry Time (if applicable). Time: 325 pm Affirmation of Time Out: YES Sign Out Discussion: Completed Anastasia Knight LPN 10/14/2017 3:36 PM Signed The following instructions are important for you related to your office visit today with the [facility]. Instructions After I ANDamp; D You are instructed to pull out 1/2 inch of packing and trim off excess daily until packing completely removed. If the dressing becomes soaked or had significant drainage, the dressing should be changed. If there is minor bleeding from this skin edge, you should hold pressure on the incision. If there is continued bleeding, you should contact our office immediately. Wash the wound with gentle soap and water. You may shower. The wound should not be immersed in a pool, bathtub, or even hot tub. If the wound shows signs of redness, inflammation, or purulent drainage, you should contact our office immediately. If you note any additional difficulties, questions, or concerns, you should contact our office immediately @ [phone] and ask to be transferred to the General Surgery department. Philippe August PA-C 10/14/2017 5:14 PM Signed HISTORY AND PHYSICAL Melisa Dowd Deacon 1985 REFERRING PHYSICIAN: Self CHIEF COMPLAINT: Right breast abscess HPI: Melisa is a 32 year old female with a complaint of a right breast abscess x 6 days. She reports a history of prior breast infection in this same area last year, has had intermittent flare-ups since that time which resolved on their own until this most recent episode. She NOTES purulent discharge from the abscess. She denies a history of diabetes or wound healing issues. The patient was seen at urgent care and was started on oral antibiotics. She notes the area has become increasingly erythematous, enlarged and tender despite the antibiotics. She denies fever or chills. 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 Disp: 20 tablet Rfl: 0 No current facility-administered medications for this visit. 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 - Multiple Sclerosis Mother - Hypertension Paternal Grandmother - Heart Paternal Grandmother a fib - Multiple Sclerosis Brother - Colon Cancer Paternal Grandfather REVIEW OF SYMPTOMS: The review of systems data was entered by the nurse and reviewed by me Nursing Notes: Anastasia Knight LPN 10/14/2017 3:36 PM Signed INFORMED CONSENT Melisa Worthy Medical Record: [id number] Procedure:right breast abcess The risks, benefits and anticipated outcomes of the procedure, the risks and benefits of the alternatives to the procedure and the roles and tasks of the personnel to be involved were discussed with the patient and the patient consents to the procedure and agrees to proceed. I verify that I personally obtained Melisa Worthy's consent. Anastasia Knight LPN October 14, 2017 3:25 PM Dept of GENERAL SURGERY UNIVERSAL PROTOCOL / SAFETY CHECKLIST Procedure to be performed: right breast abcess Sign in Communication: Completed Time Out: Team Confirms the Correct Patient, Correct Procedure, Correct Site and Site Marking, Correct Position (if applicable), Prep and Dry Time (if applicable). Time: 325 pm Affirmation of Time Out: YES Sign Out Discussion: Completed Anastasia Knight LPN PHYSICAL EXAMINATION: General: The patient is 32 year old female, well nourished, well hydrated in no acute distress. The patient is oriented to time, place, and person. VITALS: Last menstrual period 09/27/2017. There is no height or weight on file to calculate BMI. HEENT: exam deferred Respiratory: exam deferred Cardiac: exam deferred. Abdominal exam: exam deferred Rectal exam: exam deferred Extremities: no clubbing, cyanosis or edema. No adenopathy. Other: right breast Abscess - + 2cm x 3cm area of fluctuance with overlying erythema and central draining sinus. The skin overlying the point of maximal fluctance is viable. LABORATORY VALUES: As Noted RADIOLOGIC STUDIES: As Noted PROCEDURE: INCISION AND DRAINAGE OF right breast ABSCESS After consent was obtained and the site, person, and procedure verified, the patient`s skin was prepped and draped in the usual fashion. A combination of Lidocaine and Marcaine was injected into the skin. A linear incision was made over the point of maximal fluctuance. A large amount of purulent material as well as what appeared to be ruptured sebaceous cyst contents were drained from the wound. The abscess was then unroofed. The cavity was packed with iodoform gauze. The patient tolerated the procedure well. Assessment IMPRESSION: STATUS POST INCISION AND DRAINAGE OF right breast ABSCESS PLAN: Melisa is instructed to remove packing tomorrow and cover with dry gauze dressing. If the dressing becomes soaked or had significant drainage, the dressing should be changed. If there is minor bleeding from this skin edge, the patient should hold pressure on the incision. If there is continued bleeding, the patient should contact our office immediately. The patient should wash the wound with gentle soap and water. she may shower. The wound should not be immersed in a pool, bathtub, or even hot tub. Diagnoses: (N61.1) Breast abscess (primary encounter diagnosis) (L72.3) Sebaceous cyst Return to Clinic: The patient is instructed to follow-up with me in one week. Philippe August PA-C Referring Provider: SELF [200] Allergies As of Date: 10/14/2017 Noted Allergy Reaction POLLEN 12/25/2007 5 - Intolerance Comments: Sneezing, runny nose Date Reviewed: 10/14/2017 Reviewed by: Lulú Teresa RN - Fully Assessed Reason for Visit: Consult [173] Cmt: right breast abscess Primary Visit Diagnosis:Breast abscess [N61.1] Other Visit Diagnosis:Sebaceous cyst [L72.3] Order(s):WOUND CULTURE AND GRAM STAIN [SQWCUL] Order #: [id number] Prescriptions as of 10/14/2017 Sig: AMOXICILLIN 875 MG-POTASSIUM * Take 1 tablet by mouth twice * Problem List As Of Date 10/14/2017 Noted Resolved DEPRESSIVE DISORDER NEC [F32.9] INVALID FOR* ANXIETY STATE NOS [F41.1] INVALID FOR* DYSMENORRHEA [N94.6] INVALID FOR* ALLERGIC RHINITIS NOS [J30.9] INVALID FOR* GENITAL WARTS NOS [B07.8] INVALID FOR* Other instructions from your clinician: The following instructions are important for you related to your office visit today with the [facility]. Instructions After I AND D You are instructed to pull out 1/2 inch of packing and trim off excess daily until packing completely removed. If the dressing becomes soaked or had significant drainage, the dressing should be changed. If there is minor bleeding from this skin edge, you should hold pressure on the incision. If there is continued bleeding, you should contact our office immediately. Wash the wound with gentle soap and water. You may shower. The wound should not be immersed in a pool, bathtub, or even hot tub. If the wound shows signs of redness, inflammation, or purulent drainage, you should contact our office immediately. If you note any additional difficulties, questions, or concerns, you should contact our office immediately @ [phone] and ask to be transferred to the General Surgery department. Visit Notes: >> Anastasia Knight LPN Mon Oct 14, 2017 3:25 PM Status: Signed INFORMED CONSENT Melisa Worthy Medical Record: [id number] Procedure:right breast abcess The risks, benefits and anticipated outcomes of the procedure, the risks and benefits of the alternatives to the procedure and the roles and tasks of the personnel to be involved were discussed with the patient and the patient consents to the procedure and agrees to proceed. I verify that I personally obtained Melisa Worthy's consent. Anastasia Knight LPN October 14, 2017 3:25 PM Dept of GENERAL SURGERY UNIVERSAL PROTOCOL / SAFETY CHECKLIST Procedure to be performed: right breast abcess Sign in Communication: Completed Time Out: Team Confirms the Correct Patient, Correct Procedure, Correct Site and Site Marking, Correct Position (if applicable), Prep and Dry Time (if applicable). Time: 325 pm Affirmation of Time Out: YES Sign Out Discussion: Completed Anastasia Knight LPN Follow-up and Disposition History Recorded Encounter Status:Closed by PHILIPPE AUGUST PA-C on 10/14/17 PROGRESS Observed: 10/10/2017 Status: COMPLETED Source: [facility] 4:01 PM [facility] REPOSITORY HNO ID: [id number] Author: Keysha Corbin Service: (none) Author Type: Nurse Practitioner Type: Progress Notes Filed: 10/10/2017 4:32 PM Note Text: Subjective The history is provided by the patient. No assistant speech language pathologist was used. HPI Melisa Worthy is a 32 year old female who presents today for CC of right breast infection. This started Saturday, and is worsening. She is also having redness and swelling, painful to touch. Symptoms are worsened by touch She has tried no treatment or medications. Risk factors cellulitis of right breast a year ago, felt that it never cleared. PMH cellulitis a year ago. BP 134/80 Pulse 70 Temp 36.7 ?C (98.1 ?F) (Tympanic) Resp 16 Wt 62.6 kg (138 lb) LMP 09/27/2017 BMI 25.24 kg/m2 ALLERGIES Allergen Reactions - Pollen Intolerance Sneezing, runny nose ACTIVE PROBLEM LIST Depressive Disorder, Not Elsewhere Classified Anxiety State, Unspecified Dysmenorrhea Allergic Rhinitis, Cause Unspecified Other Specified Viral Warts Family History Problem Relation Age of Onset - Cancer Mother at 52 of ovarian CA primary with breast mets. 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 Negative for chills, fever and malaise/fatigue. HENT: Negative for congestion, ear pain, sinus pain and sore throat. Respiratory: Negative for cough, sputum production, shortness of breath and wheezing. Cardiovascular: Negative for chest pain. Musculoskeletal: Negative for myalgias. Skin: Positive for rash. Redness, swelling and tenderness on right breast, see HPI Neurological: Negative for headaches. Objective Physical Exam Constitutional: She is oriented to person, place, and time and well-developed, well-nourished, and in no distress. No distress. HENT: Head: Normocephalic and atraumatic. Eyes: Conjunctivae and EOM are normal. Pupils are equal, round, and reactive to light. Neck: Normal range of motion. Neck supple. Pulmonary/Chest: Effort normal. She exhibits swelling. Right breast exhibits tenderness. On 12-2 o'clock position of right breast with 1 cm width redness swelling Neurological: She is alert and oriented to person, place, and time. Skin: Skin is warm and dry. Psychiatric: Affect normal. Nursing note and vitals reviewed. ASSESSMENT/PLAN: 1. Erythema of skin - ICD9: 695.9, ICD10: L53.9 -Clean with soap and water . -Tylenol or Ibuprofen for discomfort - Warm crompresses to area -Observe area for worsening signs of infection: increase in redness, warmth, foul odor, drainage or increase in discomfort. Call you primary care physician if this occurs. -will set up appointment with Dr. Ng for further evaluation and recheck. - AMOXICILLIN 875 MG-POTASSIUM CLAVULANATE 125 MG TABLET Diagnosis and treatment plan were discussed and questions were answered to the patient's satisfaction. Pt acknowledged understanding of concepts and follow up plan. Specific signs and symptoms that would indicate the need for higher level of care were discussed in detail warranting prompt ER evaluation. Keysha Corbin CNP CNOV Observed: 10/10/2017 Status: COMPLETED Source: [place] 3:45 PM [facility] REPOSITORY Office Visit (WSTR) MELISA WORTHY ([id number]) 1985 F Date Time Provider Department 10/10/17 3:45 PM KEYSHA CORBIN (KARY) WSTR During your visit today, we recorded the following information about you: Temperature Pulse Respiration Blood pressure 98.1 degrees 70/minute 16/minute 134/80 Weight Last Period 62.6 kg 09/27/17 Keysha Corbin CNP 10/10/2017 4:32 PM Signed Subjective The history is provided by the patient. No assistant speech language pathologist was used. HPI Melisa Worthy is a 32 year old female who presents today for CC of right breast infection. This started Saturday, and is worsening. She is also having redness and swelling, painful to touch. Symptoms are worsened by touch She has tried no treatment or medications. Risk factors cellulitis of right breast a year ago, felt that it never cleared. PMH cellulitis a year ago. BP 134/80 Pulse 70 Temp 36.7 ?C (98.1 ?F) (Tympanic) Resp 16 Wt 62.6 kg (138 lb) LMP 09/27/2017 BMI 25.24 kg/m2 ALLERGIES Allergen Reactions - Pollen Intolerance Sneezing, runny nose ACTIVE PROBLEM LIST Depressive Disorder, Not Elsewhere Classified Anxiety State, Unspecified Dysmenorrhea Allergic Rhinitis, Cause Unspecified Other Specified Viral Warts Family History Problem Relation Age of Onset - Cancer Mother at 52 of ovarian CA primary with breast mets. 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 Negative for chills, fever and malaise/fatigue. HENT: Negative for congestion, ear pain, sinus pain and sore throat. Respiratory: Negative for cough, sputum production, shortness of breath and wheezing. Cardiovascular: Negative for chest pain. Musculoskeletal: Negative for myalgias. Skin: Positive for rash. Redness, swelling and tenderness on right breast, see HPI Neurological: Negative for headaches. Objective Physical Exam Constitutional: She is oriented to person, place, and time and well-developed, well-nourished, and in no distress. No distress. HENT: Head: Normocephalic and atraumatic. Eyes: Conjunctivae and EOM are normal. Pupils are equal, round, and reactive to light. Neck: Normal range of motion. Neck supple. Pulmonary/Chest: Effort normal. She exhibits swelling. Right breast exhibits tenderness. On 12-2 o'clock position of right breast with 1 cm width redness swelling Neurological: She is alert and oriented to person, place, and time. Skin: Skin is warm and dry. Psychiatric: Affect normal. Nursing note and vitals reviewed. ASSESSMENT/PLAN: 1. Erythema of skin - ICD9: 695.9, ICD10: L53.9 -Clean with soap and water . -Tylenol or Ibuprofen for discomfort - Warm crompresses to area -Observe area for worsening signs of infection: increase in redness, warmth, foul odor, drainage or increase in discomfort. Call you primary care physician if this occurs. -will set up appointment with Dr. Ng for further evaluation and recheck. - AMOXICILLIN 875 MG-POTASSIUM CLAVULANATE 125 MG TABLET Diagnosis and treatment plan were discussed and questions were answered to the patient's satisfaction. Pt acknowledged understanding of concepts and follow up plan. Specific signs and symptoms that would indicate the need for higher level of care were discussed in detail warranting prompt ER evaluation. KARY Negro CNP 10/10/2017 4:09 PM Signed ASSESSMENT/PLAN: 1. Erythema of skin - ICD9: 695.9, ICD10: L53.9 -Clean with soap and water . -Tylenol or Ibuprofen for discomfort - Warm crompresses to area -Observe area for worsening signs of infection: increase in redness, warmth, foul odor, drainage or increase in discomfort. Call you primary care physician if this occurs. -will set up appointment with Dr. Ng for further evaluation and recheck. - AMOXICILLIN 875 MG-POTASSIUM CLAVULANATE 125 MG TABLET Referring Provider: SELF [200] Allergies As of Date: 10/10/2017 Noted Allergy Reaction POLLEN 12/25/2007 5 - Intolerance Comments: Sneezing, runny nose Date Reviewed: 10/10/2017 Reviewed by: Lila Garcia Ma - Fully Assessed Reason for Visit: Breast Problem [16] Cmt: mastitis red, swollen and painful x 2 days Primary Visit Diagnosis:Erythema of skin [L53.9] Order(s):amoxicillin-clavulanic acid (AUGMENTIN) 875-125 mg per tabletTake 1 tablet by mouth twice daily for 10 days.Disp: 20 tabletRfl: 0 Prescriptions as of 10/10/2017 Sig: AMOXICILLIN 875 MG-POTASSIUM * Take 1 tablet by mouth twice * Medication notes this encounter CEPHALEXIN 500 MG CAPSULE >> Lila Sylvia Payne 10/10/2017 3:56 PM >> SYLVIA PAYNE LILA Ilene Oct 10, 2017 3:56 PM done Problem List As Of Date 10/10/2017 Noted Resolved DEPRESSIVE DISORDER NEC [F32.9] INVALID FOR* ANXIETY STATE NOS [F41.1] INVALID FOR* DYSMENORRHEA [N94.6] INVALID FOR* ALLERGIC RHINITIS NOS [J30.9] INVALID FOR* GENITAL WARTS NOS [B07.8] INVALID FOR* Other instructions from your clinician: ASSESSMENT/PLAN: 1. Erythema of skin - ICD9: 695.9, ICD10: L53.9 -Clean with soap and water . -Tylenol or Ibuprofen for discomfort - Warm crompresses to area -Observe area for worsening signs of infection: increase in redness, warmth, foul odor, drainage or increase in discomfort. Call you primary care physician if this occurs. -will set up appointment with Dr. Ng for further evaluation and recheck. - AMOXICILLIN 875 MG-POTASSIUM CLAVULANATE 125 MG TABLET Prescriptions ordered this encounter Disp Refills Start End AMOXICILLIN 875 MG-POTASSIUM CLAVULA* 20 t* 0 10/10/2017 10/20/2017 Route: ORAL Sig: Take 1 tablet by mouth twice daily for 10 days. Medications Discontinued During This Encounter cephALEXin (KEFLEX) 500 mg capsule 40 c* 0 09/18/2016 10/10/2017 Route: ORAL Sig: Take 1 capsule by mouth four times daily. Disc: Course of therapy completed Encounter Status:Closed by KEYSHA CORBIN CNP on 10/10/17 ALLERGIES ALLERGIES DATE TYPE / CODE NAME / CODE REACTION SEVERITY SOURCE 07/11/2018 Drug No Known Unknown [facility] Allergy/416 Allergies/F00 [facility] [id number](SNOM [id number](RXNOR Repository ED CT) M) 12/25/2007 Environ/420 POLLEN INTOLERANCE [facility] [id number]([facility] Main [place] ED CT) Repository ENCOUNTERS ENCOUNTERS ADMIT/DISCHARGE ACCOUNT ADMITTING ENCOUNTER LOCATION SOURCE NUMBER CLASS 07/11/2018 [id number] Ambulatory [facility] Hospital ing:LAB Repository 07/11/2018/07/11/20 [id number] Ambulatory BMSBuilding:[address] [place] [address] Repository 01/19/2018/01/22/20 [id number] Ambulatory [address] Repository 10/21/2017/10/24/19 [id number] Ambulatory [address] Main [place] Repository 10/14/2017/10/16/19 [id number] Ambulatory [address] Main [place] Repository 10/10/2017/10/12/19 [id number] Ambulatory [address] Repository PAYERS PAYERS ENCOUNTER GUARANTOR PAYER SUBSCRIBER SOURCE 07/11/2018 MELISA Dowd Primary ELSY [place] [id number] [facility] Health [id number] [id number], [place] Number: Repository [id number]: [id number] [phone] () Date:[id number] [id number] [place] [id number]: 07/11/2018 Secondary NOT GIVENUNK Delbert Insurance:SELF PAY [facility] Number: Effective Repository Date:2018-07-11 07/11/2018 MELISA Dowd Primary ELSY Mandujano [id number] [facility] [address]Cuunyj [id number], [place] Number: Repository [id number]: [id number] [phone] () Date:[id number] [address]YUF[address], [place] [address]NN: 07/11/2018 Secondary NOT GIVENUNK Delbert Insurance:SELF PAY [facility] Number: Effective Repository Date:2018-07-11
== END ==
PROVIDERS: Referring Provider Obstetrics & Gynecology; Visit Provider Obstetrics & Gynecology
DX: Z34.81 Encounter for supervision of other normal pregnancy, first trimester (principal)
CPT/HCPCS: 36415; 85025; 86592; 86703; 86762; 86850; 86900; 87340; 87491; 87591; 87624; 88175; G0145

== ENCOUNTER → 2018-08-08 17:54 | Outpatient (CLI) | payer OTHER, SELFPAY ==
[2018-08-08 15:26] VITALS: BMI 25.2
== END ==
PROVIDERS: Referring Provider Nurse Practitioner Women's Health; Visit Provider Nurse Practitioner Women's Health
DX: O09.90 Supervision of high risk pregnancy, unspecified, unspecified trimester (principal); Z3A.00 Weeks of gestation of pregnancy not specified
CPT/HCPCS: 87086; 87088

== ENCOUNTER → 2018-11-11 15:12 | Outpatient (CLI) | payer OTHER, SELFPAY ==
[2018-10-31 14:14] VITALS: BMI 25.2
[2018-11-11 17:42] LABS: Absolute Lymphocyte Count 2.52 X10^3/ul (0.83-4.51); Absolute Neutrophil Count 7.4 X10^3/uL (2.0-7.7); Basophil# 0.02 X10^3/uL; Basophil% 0.2 % (0-1); Eosinophil# 0.18 X10^3/uL; Eosinophils% 1.7 % (0-5); Hematocrit 32.6 % (37-47); Hemoglobin 10.9 g/dl (12.0-15.0); Lymphocyte # 2.52 X10^3/ul (4.0); Lymphocyte % 23.1 % (19-41); Mean Corp Hgb Conc 33.4 g/gl (32-36); Mean Corpuscular Hgb 33.1 pg (27.0-32.0); Mean Corpuscular Volume 99.1 fL (81-99); Mean Platelet Vol. 8.5 fl (6.2-12.0); Monocyte# 0.72 X10^3/uL; Monocyte% 6.6 % (0-10); Neutrophil # 7.38 X10^3/uL (2.7-7.7); Neutrophil % 67.8 % (47-70); Platelet Count 299 K/mm3 (150-450); RBC Distribution Width CV 12.5 % (11.6-14.6); RBC Distribution Width SD 45.2 fl (35.1-43.9); Red Blood Count 3.29 M/mm3 (4.2-5.4); White Blood Count 10.9 K/mm3 (4.4-11.0)
[2018-11-11 17:45] LABS: Glucose Challenge Gest 1H 50g 126 mg/dL (70-140)
[2018-11-11 17:47] LABS: Differential Indicated SCAN CRITERIA MET; POSITIVE COUNT NO; POSITIVE DIFFERENTIAL NO; POSITIVE MORPHOLOGY YES
[2018-11-11 18:11] LABS: Differential Comment SCANNED
== END ==
PROVIDERS: Referring Provider Obstetrics & Gynecology; Visit Provider Obstetrics & Gynecology
DX: O09.90 Supervision of high risk pregnancy, unspecified, unspecified trimester (principal); Z3A.00 Weeks of gestation of pregnancy not specified
CPT/HCPCS: 36415; 82950; 85025; 86850; 86900

== ENCOUNTER → 2019-01-09 16:41 | Outpatient (CLI) | payer OTHER, SELFPAY ==
[2019-01-09 14:56] VITALS: BMI 28.5
== END ==
PROVIDERS: Referring Provider Obstetrics & Gynecology; Visit Provider Obstetrics & Gynecology
DX: Z34.90 Encounter for supervision of normal pregnancy, unspecified, unspecified trimester (principal); Z3A.36 36 weeks gestation of pregnancy
CPT/HCPCS: 87081

== ENCOUNTER → 2019-01-16 11:23 | Outpatient (CLI) | payer OTHER, SELFPAY ==
[2019-01-16 11:17] VITALS: BMI 28.5
[2019-01-16 12:06] LABS: Absolute Neutrophil Count 6.9 X10^3/uL (2.0-7.7); Basophil# 0.01 X10^3/uL; Basophil% 0.1 % (0-1); Eosinophil# 0.08 X10^3/uL; Eosinophils% 0.8 % (0-5); Hematocrit 36.5 % (37-47); Hemoglobin 12.1 g/dl (12.0-15.0); Lymphocyte % 18.8 % (19-41); Mean Corp Hgb Conc 33.2 g/gl (32-36); Mean Corpuscular Hgb 32.4 pg (27.0-32.0); Mean Corpuscular Volume 97.9 fL (81-99); Mean Platelet Vol. 8.9 fl (6.2-12.0); Monocyte# 0.69 X10^3/uL; Monocyte% 7.2 % (0-10); Neutrophil # 6.88 X10^3/uL (2.7-7.7); Neutrophil % 71.8 % (47-70); Platelet Count 207 K/mm3 (150-450); RBC Distribution Width CV 13.5 % (11.6-14.6); RBC Distribution Width SD 46.3 fl (35.1-43.9); Red Blood Count 3.73 M/mm3 (4.2-5.4); White Blood Count 9.6 K/mm3 (4.4-11.0)
[2019-01-16 12:07] LABS: POSITIVE COUNT NO; POSITIVE DIFFERENTIAL NO; POSITIVE MORPHOLOGY NO
== END ==
PROVIDERS: Nurse Practitioner Women's Health; Referring Provider Obstetrics & Gynecology; Visit Provider Obstetrics & Gynecology
DX: O99.019 Anemia complicating pregnancy, unspecified trimester (principal); Z3A.00 Weeks of gestation of pregnancy not specified
CPT/HCPCS: 36415; 85025

== ENCOUNTER → 2019-01-27 | Outpatient (CLI) | payer OTHER, SELFPAY ==
[2019-01-23 11:06] VITALS: BMI 28.5
--- NOTE | 2019-01-27 13:57 | US_ITS ---
STUDY: SECOND AND THIRD TRIMESTER OBSTETRICAL ULTRASOUND - LIMITED REASON FOR EXAM: Female, 33 years old. Routine survey. LMP: May 01, 2018. PRIOR ULTRASOUND: None. TECHNIQUE: Transabdominal TECHNICAL QUALITY: Adequate. FINDINGS: There is a single intrauterine fetus. The fetus is in a cephalic presentation. There is demonstrated cardiac activity with a heart rate of 130 bpm. There is a normal amniotic fluid volume. The largest amniotic fluid pocket measures 4.8 cm. The amniotic fluid index (MARIO) is 11.3 cm. The placenta is anterior in location and is not low lying. There are Grade 2 placental changes. The cervix cannot be measured due to position. BIOMETRY: BPD: 9.01 cm: 36 weeks, 4 days HC: 34.29 cm: 39 weeks, 5 days AC: 35.75 cm: 39 weeks, 5 days FL: 7.3 cm: 37 weeks, 3 days Age by LMP: 38 weeks, 5 days. RONY by LMP: February 05, 2019. age by current US: 38 weeks, 3 days. RONY by current US: February 07, 2019. Estimated weight: 3582 grams, +/- 523 grams, 68 percentile. Gender: Indeterminant US/OB Limited With Biometrics IMPRESSION: Single live intrauterine gestation with a mean gestational age of 38 weeks and 3 days. Electronically Signed: Jett Lewis, at 14:55 EDT , Service support ,
== END | disposition home or self-care (01) ==
PROVIDERS: Visit Provider Obstetrics & Gynecology
DX: O09.90 Supervision of high risk pregnancy, unspecified, unspecified trimester (principal); Z3A.00 Weeks of gestation of pregnancy not specified
CPT/HCPCS: 76816

== ENCOUNTER 2019-02-04 02:35 | Outpatient (CLI) | payer OTHER, SELFPAY ==
[2019-01-30 11:06] VITALS: BMI 28.5
[2019-02-04 05:00] LABS: ROM Internal Control Test YES-OK TO RESULT pt. (Internal QC); ROM Patient Test Negative (Negative)
--- NOTE | 2019-02-10 07:20 | HP.PCM_ITS ---
History and Physical Date of Admission: 03/06/19 false labor no significant cervical change fht 130 moderate variability reactive no decelerations category I tracing [place]: regular a/p false labor reactive nst dc home labor preacutions
== END 2019-02-04 04:05 | disposition home or self-care (01) ==
LOC: WPOUT 04:57 → WP 04:59
PROVIDERS: Referring Provider Obstetrics & Gynecology; Visit Provider Obstetrics & Gynecology
DX: O47.9 False labor, unspecified (principal); Z3A.00 Weeks of gestation of pregnancy not specified
CPT/HCPCS: 59025; 59050; 84112; 99218; G0378

== ENCOUNTER 2019-02-05 14:35 | Inpatient (IN) | payer OTHER, SELFPAY ==
[2019-02-04 10:00] VITALS: BMI 28.5
[2019-02-05] VITALS (24 sets, daily range): BP systolic 93–129; BP diastolic 47–84; PULSE 62–94; RESP 14–20; TEMP 36.1–36.8; O2SAT 92–100; BMI 30.3
[2019-02-05] MEDS: Lactated Ringers 1,000 ML 999 ML IV (15:00)
[2019-02-05] MEDS: Cefazolin 2 GM in 0.9% Normal Saline 100 ML IV (15:09)
[2019-02-05 15:10] LABS: Absolute Lymphocyte Count 1.91 X10^3/ul (0.83-4.51); Absolute Neutrophil Count 16.5 X10^3/uL (2.0-7.7); Basophil# 0.03 X10^3/uL; Basophil% 0.2 % (0-1); Eosinophils% 0.5 % (0-5); Hematocrit 34.7 % (37-47); Hemoglobin 11.9 g/dl (12.0-15.0); Lymphocyte # 1.91 X10^3/ul (4.0); Lymphocyte % 9.6 % (19-41); Mean Corp Hgb Conc 34.3 g/gl (32-36); Mean Corpuscular Hgb 33.2 pg (27.0-32.0); Mean Corpuscular Volume 96.9 fL (81-99); Mean Platelet Vol. 8.6 fl (6.2-12.0); Monocyte# 1.26 X10^3/uL; Monocyte% 6.3 % (0-10); Neutrophil # 16.54 X10^3/uL (2.7-7.7); Neutrophil % 82.6 % (47-70); Platelet Count 95 K/mm3 (150-450); RBC Distribution Width CV 14.1 % (11.6-14.6); Red Blood Count 3.58 M/mm3 (4.2-5.4)
[2019-02-05 15:11] LABS: POSITIVE COUNT NO; POSITIVE DIFFERENTIAL NO
[2019-02-05 15:12] LABS: Differential Indicated SCAN CRITERIA MET; POSITIVE MORPHOLOGY YES
[2019-02-05] MEDS: Oxytocin 30 units/NS 500 ml 30 UNITS/500 ML IV.SOLN 167 UNITS IV (15:15)
[2019-02-05 15:37] LABS: Differential Comment SCANNED
--- NOTE | 2019-02-05 15:49 | CASEMGMT ---
Social Work Labor and Delivery Responded to OB-ERT. Provided support to father of baby (FOB) while patient prepped for delivery. Answered questions as able. This newspaper writer remained available until baby girl Natalia delivered and able to go skin to skin with patient. FOB maintaining a calm demeanor, teary eyed during process, showing appropriate responses and concern for patient and baby [place]. Social work remains available during hospital stay should any social service needs present for this family. -PRERNA Jaffe, POLYTECHNIC TEACHER
[2019-02-05] MEDS: Lactated Ringers 1,000 ML 100 ML IV (16:00)
[2019-02-05] MEDS: Lactated Ringers 1,000 ML 150 ML IV (16:15)
[2019-02-05 16:18] LABS: International Normalized Ratio 1.9; Partial Thromboplast Time 36.2 Seconds (24.1-36.2); Prothrombin Time (Protime)PT. 21.9 SECONDS (11.7-14.9)
--- NOTE | 2019-02-05 16:19 | PCM.HP.OB ---
- Problem List (1) Late deceleration of heart rate Status: Acute (2) Vaginal bleeding during Status: Acute (3) Placental abruption Status: Acute (4) Anemia during Status: Acute Comment: resolved (5) Status: Acute Qualifiers: Weeks of gestation: 39 weeks Qualified Code(s): Z3A.39 - 39 weeks gestation of Comment: NIPT low risk. MFM anatomy 09/04/18- bilateral choroid plexus cyst no concern since neg genetic screen. Rpt US at 28 wk (6) Tobacco use affecting , antepartum Status: Acute Comment: stopped!! (7) Supervision of high-risk Status: Acute Qualifiers: Trimester: third trimester Qualified Code(s): O09.93 - Supervision of high risk , unspecified, third trimester Comment: PRR RONY 02/05/19 Girl Natalia Kj (8) Anxiety Status: Acute Comment: no meds (9) Abnormal Pap smear of cervix Status: Acute Qualifiers: Abnormal Pap type: unspecified Qualified Code(s): R87.619 - Unspecified abnormal cytological findings in specimens from cervix uteri History Date of Admission: 02/05/19 Final RONY: 02/05/19 Gestational age: 40 Weeks and 0 Days History of this : This is a 33 year-old, G1, P0 at 40 weeks gestational age presenting with acute vaginal bleeding and abdominal pain. Patient was placed on the monitor and was noted to have absent variability with recurrent late decelerations and therefore she was taken back for emergent ovarian delivery for suspected placental abruption. Medical History: Medical History (Last Reviewed 02/04/19 @ 09:59 by Kavita Sanchez) Anxiety and depression F41.9, F32.9 Surgical History: Surgical History (Last Reviewed 02/04/19 @ 09:59 by Kavita Sanchez) Abscess of right breast N61.1 H/O: knee surgery Z98.890 History of left breast biopsy Z98.890 benign Allergies No Known Allergies Allergy (Verified 02/04/19 09:59) Home Medications: Home Medications vitamin#30 30 mg iron-10 mg iron-folic acid 1 mg-omg3 capsule cap PO cap 07/11/18 Smoking Status: Heavy Smoker (>10/day) Number of Fetus(es): 1 Heart Tracin absent variability nonreactive recurrent late decelerations toco q 2-3 History Past Pregnancies: Past Pregnancies Delivery Date Name GA/Weeks Outcome Route Weight Infant Gender Labor Length Anesthesia Delivery Location Provider FOB Labs: Mom's Labs & Results 02/05/19 02/05/19 02/05/19 14:55 14:55 14:55 WBC 20.0 H RBC 3.58 L Hgb 11.9 L Hct 34.7 L MCV 96.9 MCH 33.2 H MCHC 34.3 RDW 14.1 RDW Differential 50.0 H Plt Count 95 L MPV 8.6 Immature Gran % (Auto) 0.800 Neut % (Auto) 82.6 H Lymph % (Auto) 9.6 L [place] % (Auto) 6.3 Eos % (Auto) 0.5 Baso % (Auto) 0.2 Absolute Neuts (auto) 16.5 H Absolute Lymphs (auto) 1.91 Total Counted Not Reportable Differential Comment SCANNED PT INR APTT Fibrinogen Blood Type AB POSITIVE Antibody Screen NEGATIVE Crossmatch See Detail 02/05/19 02/05/19 02/05/19 14:55 15:49 17:15 WBC 12.2 H RBC 2.58 L Hgb 8.7 L Hct 25.2 L MCV 97.7 MCH 33.7 H MCHC 34.5 RDW 14.1 RDW Differential 50.2 H Plt Count 68 L MPV 8.3 Immature Gran % (Auto) Neut % (Auto) Lymph % (Auto) [place] % (Auto) Eos % (Auto) Baso % (Auto) Absolute Neuts (auto) Absolute Lymphs (auto) Total Counted Differential Comment PT 21.9 H INR 1.9 APTT 36.2 Fibrinogen 60 L* Blood Type Antibody Screen Crossmatch See Detail 02/05/19 17:15 WBC RBC Hgb Hct MCV MCH MCHC RDW RDW Differential Plt Count MPV Immature Gran % (Auto) Neut % (Auto) Lymph % (Auto) [place] % (Auto) Eos % (Auto) Baso % (Auto) Absolute Neuts (auto) Absolute Lymphs (auto) Total Counted Differential Comment PT 21.5 H INR 1.9 APTT 36.0 Fibrinogen 71 L* Blood Type Antibody Screen Crossmatch Course Did the patient receive Yes care? Labs Blood Type: AB RH: POSITIVE RPR/VDRL/Syphilis Nonreactive Rubella status Immune HbSAg Negative Date Done: 07/11/18 Chlamydia Negative Gonorrhea Negative HIV/AIDS Non-Reactive Group B Strep: Negative Current Obstetrical History Gestational Diabetes No Incompetent Cervix No Infertility No IUGR No Macrosomia No Hypertension/Pre-eclampsia No Placenta Previa/Abruption No PTL/PROM No Uterine anomaly No Oligohydramnios No Polyhydramnios No Multiple gestation No Past Medical History Asthma No Diabetes No Hypertension No Heart disease No Mitral valve prolapse No Neurologic/Seizure disorder/ No Migraines Kidney disease No Liver disease No Varicosities No Clotting disorders/Hx of DVT No Thyroid Dysfunction No Other medical diseases No Psychiatric disorders No Major trauma No Abnormal PAP smear No Sleep apnea No Mammogram in the last 2 years Yes Social History Marital Status: Alleged father Kj Hx Smoking Yes Smoking Status Light Smoker (<10/day) How long have you used no substances (years)? What date/time did you last no use any of the above? Expected Delivery Method: Primary Section Review of Systems Constitutional: Denies: Fever, Malaise Eyes: Denies: Blurred vision, Vision Change HEENT: Denies: Head Aches, Visual Changes Cardiovascular: Denies: Chest Pain, Palpitations Respiratory: Denies: Cough, Shortness of Breath, Wheezing Gastrointestinal: Reports: Abdominal Pain. Denies: Diarrhea, Nausea, Vomiting Genitourinary: Denies: Dysuria, Hematuria Gynecological: Reports: Vaginal bleeding Musculoskeletal: Denies: Joint Pain, Muscle pain Skin: Denies: Lesions, Rash Neurological: Denies: Blurred vision, Focal weakness, Headaches Physical Exam General: Alert, Cooperative, No apparent distress HEENT: Atraumatic, Normocephalic. Negative for: Thyromegaly, Lymphadenopathy Cardiovascular: Regular rate Lungs: Normal air movement Abdomen: Soft, Non Tender, Gravid Neurological: Neuro grossly intact MARKER MAKER: Normal external genitalia. Negative for: Vulvar lesions Estimated gestational size: Appropriate for gestational size Presentation: Cephalic Cervix Dilation (cm): 4 Assessment/Plan All Active Problems (Last Reviewed 02/04/19 @ 09:59 by Kavita Sanchez) Late deceleration of heart rate (Acute) Vaginal bleeding during (Acute) Placental abruption (Acute) Anemia during (Acute) (Acute) Tobacco use affecting , antepartum (Acute) Supervision of high-risk (Acute) Anxiety (Acute) Abnormal Pap smear of cervix (Acute) This is a 33 year-old, G1, P0 at 40 weeks gestational age presents with acute placental abruption and category 3 tracing 1. Category 3 tracing proceed with immediate delivery.
--- NOTE | 2019-02-05 16:20 | PCM.OPRPT ---
Problem List (1) Late deceleration of heart rate Status: Acute (2) Vaginal bleeding during Status: Acute (3) Placental abruption Status: Acute (4) Anemia during Status: Acute Comment: resolved (5) Status: Acute Qualifiers: Weeks of gestation: 39 weeks Qualified Code(s): Z3A.39 - 39 weeks gestation of Comment: NIPT low risk. MFM anatomy 09/04/18- bilateral choroid plexus cyst no concern since neg genetic screen. Rpt US at 28 wk (6) Tobacco use affecting , antepartum Status: Acute Comment: stopped!! (7) Supervision of high-risk Status: Acute Qualifiers: Trimester: third trimester Qualified Code(s): O09.93 - Supervision of high risk , unspecified, third trimester Comment: PRR RONY 02/05/19 Girl Natalia Kj (8) Anxiety Status: Acute Comment: no meds (9) Abnormal Pap smear of cervix Status: Acute Qualifiers: Abnormal Pap type: unspecified Qualified Code(s): R87.619 - Unspecified abnormal cytological findings in specimens from cervix uteri Delivery Classification: Stat Final RONY: 02/05/19 Gestational age: 40 Weeks and 0 Days Indications for : Suspected Abruptio Placenta, Distress Description of Procedure: The patient is a 33-year-old G1, P0 at 40 weeks presented with acute vaginal bleeding, heart rate decelerations and suspected acute placental abruption. Spinal anesthesia was placed quickly and without difficulty. Hardy catheter was placed. The patient was placed in the dorsal supine position with leftward tilt. Patient was prepped and draped in the normal sterile fashion. Pfannenstiel skin incision was made with the scalpel and carried through to the underlying layer of fascia with the scalpel. Fascia was nicked in the midline and the incision extended laterally. The peritoneum was entered digitally. The incision was stretched and a low transverse uterine incision was made with the scalpel. The infant's head was delivered atraumatically followed by the anterior and posterior shoulders without complication the rest of the infant delivered. The cord was clamped and cut and the infant was handed off to awaiting nurse. The placenta was delivered spontaneously immediately following and was noted to be intact and have a three-vessel cord. The uterus was exteriorized cleared of all clots and debris, and the incision was closed in a double layer closure using #1 Monocryl. The uterus was returned to the maternal abdomen and gutters were cleared of all clots and debris. Eric was applied to the incision and excellent hemostasis was noted. The ovaries and fallopian tubes were noted to be within normal limits. The peritoneum was closed with 3-0 Monocryl in a running fashion. Fascia was closed with 0 PDS in a running fashion. Subcutaneous tissue was copiously irrigated and the skin was closed with 3-0 Monocryl in a subcuticular fashion. Mepilex dressing were applied without complication. Patient was taken to recovery in stable condition. Amniotic Membrane Rupture Type: Artificial Amniotic Fluid Description: Bloody Placenta Disposition: [facility] Cord Entanglement: None Cord Vessel Description: 3 Vessels Esitmated Blood Loss (ml): 800 Infant Gender: Female (1 minute): 7 - cor pH 6.89 base excess -15 (5 minute): 9 Delayed cord clamping: No Pre-op Antibiotic Given: Ancef 2 grams IV x1 Pt instructed on risks of surgery: Bleeding, Anesthesia Risks, Infection Complications: - - consumptive coagulopathy, abruption - Admit VTE Documentation VTE Present on Admission: No VTE Mechan Device Prophylaxis: SCD's
--- NOTE | 2019-02-05 16:22 | NURSING ---
Anesthesia in room at call time, asked Dr Mays if they could do spinal instead of general, ok['d.
[2019-02-05 16:55] LABS: Fibrinogen 60 mg/dl (203-444)
[2019-02-05 17:28] LABS: Hematocrit 25.2 % (37-47); Hemoglobin 8.7 g/dl (12.0-15.0); Mean Corp Hgb Conc 34.5 g/gl (32-36); Mean Corpuscular Hgb 33.7 pg (27.0-32.0); Mean Corpuscular Volume 97.7 fL (81-99); Mean Platelet Vol. 8.3 fl (6.2-12.0); Platelet Count 68 K/mm3 (150-450); RBC Distribution Width CV 14.1 % (11.6-14.6); RBC Distribution Width SD 50.2 fl (35.1-43.9); Red Blood Count 2.58 M/mm3 (4.2-5.4); White Blood Count 12.2 K/mm3 (4.4-11.0)
[2019-02-05 17:29] LABS: Scan Indicated on CBC? Y/N NO
[2019-02-05 17:37] LABS: International Normalized Ratio 1.9; Prothrombin Time (Protime)PT. 21.5 SECONDS (11.7-14.9)
[2019-02-05] MEDS: 0.9% Saline Lock 10 ML Syringe IV ×2 (17:45→22:29)
[2019-02-05 17:51] LABS: Fibrinogen 71 mg/dl (203-444)
--- NOTE | 2019-02-05 18:12 | PN.OBGYN_ITS ---
Subjective: 500 cc blood loss patient evaluated and asymptomatic. Hemodynamically stable. Patient in consumptive coagulopathy after abruption and . Discussed with critical care attending will transfuse 2 units packed red blood cells and 2 units of FFP, platelets ordered and will transfuse once they are here. Patient denies any chest pain or shortness of breath. Patient is comfortable. - Physical Exam General: Alert, Oriented x3 Lungs: Normal air movement Cardiovascular: Regular rate Abdomen: Soft, Non Tender, Non-Distended, - - Fundus firm at the U, Vital Signs Temp Pulse Resp BP Pulse Ox 97.8 F 65 16 105/70 100 02/05/19 17:00 02/05/19 17:00 02/05/19 17:00 02/05/19 17:11 02/05/19 17:00 Oxygen Flow Rate (L/min) 2 Oxygen Delivery Method Nasal Cannula Weight: 166 lb Body Mass Index (BMI) 30.3 Intake and Output for Last 24 Hours 02/03/19 02/04/19 02/05/19 23:59 23:59 23:59 Intake Total 1600 / 1600 Output Total 150 / 150 Balance 1450 / 1450 Laboratory Tests Past 24 Hrs 02/05/19 02/05/19 02/05/19 14:55 14:55 14:55 WBC 20.0 H RBC 3.58 L Hgb 11.9 L Hct 34.7 L MCV 96.9 MCH 33.2 H MCHC 34.3 RDW 14.1 RDW Differential 50.0 H Plt Count 95 L MPV 8.6 Immature Gran % (Auto) 0.800 Neut % (Auto) 82.6 H Lymph % (Auto) 9.6 L [place] % (Auto) 6.3 Eos % (Auto) 0.5 Baso % (Auto) 0.2 Absolute Neuts (auto) 16.5 H Absolute Lymphs (auto) 1.91 Total Counted Not Reportable Differential Comment SCANNED PT INR APTT Fibrinogen Blood Type AB POSITIVE Antibody Screen NEGATIVE Crossmatch See Detail 02/05/19 02/05/19 02/05/19 14:55 15:49 17:15 WBC 12.2 H RBC 2.58 L Hgb 8.7 L Hct 25.2 L MCV 97.7 MCH 33.7 H MCHC 34.5 RDW 14.1 RDW Differential 50.2 H Plt Count 68 L MPV 8.3 Immature Gran % (Auto) Neut % (Auto) Lymph % (Auto) [place] % (Auto) Eos % (Auto) Baso % (Auto) Absolute Neuts (auto) Absolute Lymphs (auto) Total Counted Differential Comment PT 21.9 H INR 1.9 APTT 36.2 Fibrinogen 60 L* Blood Type Antibody Screen Crossmatch See Detail 02/05/19 17:15 WBC RBC Hgb Hct MCV MCH MCHC RDW RDW Differential Plt Count MPV Immature Gran % (Auto) Neut % (Auto) Lymph % (Auto) [place] % (Auto) Eos % (Auto) Baso % (Auto) Absolute Neuts (auto) Absolute Lymphs (auto) Total Counted Differential Comment PT 21.5 H INR 1.9 APTT 36.0 Fibrinogen 71 L* Blood Type Antibody Screen Crossmatch Medical Necessity - Tobacco Use Smoking Status: Light Smoker (<10/day) Assessment/Plan All Active Problems (Last Reviewed 02/04/19 @ 09:59 by Kavita Sanchez) Anemia during (Acute) (Acute) Tobacco use affecting , antepartum (Acute) Supervision of high-risk (Acute) Anxiety (Acute) Abnormal Pap smear of cervix (Acute) 33-year-old status post primary low transverse secondary to acute abruption with consumptive coagulopathy 1. Anemia secondary to acute blood loss and consumptive coagulopathy?moderate balloon placed and bleeding under control. No additional bleeding from any sites and patient is hemodynamically stable. Transfusing 2 units of FFP and 2 units of packed red blood cells. Additional 2 units on hold and platelets are in route. Discussed with critical care attending and will repeat labs 2 hours after transfusions.
--- NOTE | 2019-02-05 20:19 | NURSING ---
See hemorrhage checklist for additional vital signs, assessments, meds, and procedures.
--- NOTE | 2019-02-05 22:06 | PLAC_PTH ---
PATIENT: KATLYN PEREZ LOC: WP U#:[id number] AGE/SX: 33/F ROOM: WP009 RE02/05/[address]: Dr. Jennifer Mays MD : 1985 BED: 1 DIS: 02/09/2019 SPEC #: [id number] RECD: 02/05/19 22:24 STATUS: HAILEY REHenrietta #: [id number] KATE: 02/05/19 22:[address]: Jennifer Mays DEPT: SURGICAL PATHOLOGY RECD BY: Neo Pacheco ENTERED: 02/06/19 08:38 SP TYPE: PLACENTA OTHR DR: No Primary Care Phys Out of [facility] Doctor Tissues: Placenta, NOS Procedures: Surgery Specimen Level V HEADER OPERATION: Primary section PRE-OP DIAGNOSIS: Labor and delivery TISSUE SUBMITTED: Placenta MICROSCOPIC DIAGNOSIS Parada placenta (539 gm): Umbilical cord - trivascular with no inflammation. Placental membranes - no pathologic change. Placental disc - mild Traci-Tyree change. AM:sg 02/10/19 MICROSCOPIC DESCRIPTION Slides are reviewed. GROSS DESCRIPTION SPECIMEN: PLACENTA / CLINICAL INFORMATION: A. Weight: 3.271 kg B. Gestational Age: 40 weeks C. Sex: Female PLACENTAL WEIGHT (POST FIXATION): 539 gm PLACENTAL DIMENSIONS: 20 x 19 x 3 cm PLACENTAL SHAPE: Usual ovoid PLACENTAL WEIGHT FOR GESTATIONAL AGE: Within 10-99th percentile MEMBRANES - Present. The membranes are partly fragmented and detached from the placental disc. A portion of membrane is attached to the umbilical cord. A. Insertion: Marginal B. Site of rupture from edge: Distance of rupture cannot be assessed due to fragmented nature of the membranes. C. Color of membrane: Nixon-gaona D. Abnormalities: None UMBILICAL CORD - Present. The umbilical cord is completely detached from the placental disc. A. Color: Nixon-gaona B. Insertion: Paracentral C. Length: 37 cm D. Diameter: Up to 1.5 cm E. Number of vessels: Three F. Abnormalities: None PLACENTAL DISC - Present A. Color of surface: Nixon-gaona B. surface abnormalities: None C. Maternal cotyledons: Intact with minimal tears D. Attached retro placental clot: No clot E. Cut surface: Dark red and spongy F. Lesions: None G. Separate clot: Multiple blood clots weighing in aggregate 42 gm and measuring 8 x 5 x 2.5 cm. SECTIONS SUBMITTED: 1. Membrane roll 2. Cord, maternal end 3. Cord, end 4. Placental disc, and maternal surfaces 5. Placental disc, and maternal surfaces 6. Placental disc, and maternal surfaces BRANDO:sg 02/09/19 TC:5 CPT: 73086
[2019-02-05] MEDS: Ondansetron 4 MG/2 ML Vial IV (22:29)
[2019-02-05 22:30] LABS: Pathology Specimen OB SEE PATHOLOGY REPORT
--- NOTE | 2019-02-05 23:42 | NURSING ---
Uterine Tamponade in place, emptied for 50 ml at 1954, and 50 for 2214.
[2019-02-06] VITALS (23 sets, daily range): BP systolic 89–116; BP diastolic 44–69; PULSE 65–94; RESP 14–18; TEMP 36.3–37.1; O2SAT 97–100
[2019-02-06] MEDS: Lactated Ringers 1,000 ML 100 ML IV ×2 (00:41→11:42)
[2019-02-06 01:12] LABS: International Normalized Ratio 1.3; Prothrombin Time (Protime)PT. 15.9 SECONDS (11.7-14.9)
[2019-02-06 01:13] LABS: Partial Thromboplast Time 28.4 Seconds (24.1-36.2)
[2019-02-06 01:14] LABS: Fibrinogen 192 mg/dl (203-444)
[2019-02-06 01:15] LABS: Absolute Lymphocyte Count 1.12 X10^3/ul (0.83-4.51); Absolute Neutrophil Count 10.7 X10^3/uL (2.0-7.7); Basophil# 0.01 X10^3/uL; Basophil% 0.1 % (0-1); Eosinophil# 0.04 X10^3/uL; Eosinophils% 0.3 % (0-5); Hematocrit 23.5 % (37-47); Hemoglobin 8.1 g/dl (12.0-15.0); Lymphocyte # 1.12 X10^3/ul (4.0); Lymphocyte % 8.4 % (19-41); Mean Corp Hgb Conc 34.5 g/gl (32-36); Mean Corpuscular Hgb 30.7 pg (27.0-32.0); Mean Platelet Vol. 8.4 fl (6.2-12.0); Monocyte# 1.45 X10^3/uL; Monocyte% 10.9 % (0-10); Neutrophil # 10.69 X10^3/uL (2.7-7.7); Platelet Count 107 K/mm3 (150-450); RBC Distribution Width CV 17.2 % (11.6-14.6); RBC Distribution Width SD 53.9 fl (35.1-43.9); Red Blood Count 2.64 M/mm3 (4.2-5.4); White Blood Count 13.4 K/mm3 (4.4-11.0)
[2019-02-06 01:19] LABS: POSITIVE COUNT NO; POSITIVE DIFFERENTIAL NO; POSITIVE MORPHOLOGY NO
--- NOTE | 2019-02-06 01:54 | NURSING ---
Just spoke with Dr. Mays and notified of most recent lab results. Order received for 1 additional dose of FFP and check another fibrinogen 2 hours after transfusion. no additional PRBC at this time.
[2019-02-06] MEDS: 0.9% Saline Lock 10 ML Syringe IV ×3 (03:56→22:08)
[2019-02-06] MEDS: Acetaminophen 500 MG Tablet 1000 MG PO (06:41)
[2019-02-06 06:47] LABS: Hematocrit 19.7 % (37-47); Mean Corp Hgb Conc 35.5 g/gl (32-36); Mean Corpuscular Hgb 31.4 pg (27.0-32.0); Mean Corpuscular Volume 88.3 fL (81-99); Mean Platelet Vol. 8.8 fl (6.2-12.0); Platelet Count 86 K/mm3 (150-450); RBC Distribution Width CV 18.1 % (11.6-14.6); RBC Distribution Width SD 58.7 fl (35.1-43.9); Red Blood Count 2.23 M/mm3 (4.2-5.4); White Blood Count 10.6 K/mm3 (4.4-11.0)
[2019-02-06 06:49] LABS: Scan Indicated on CBC? Y/N NO
[2019-02-06 06:52] LABS: Fibrinogen 242 mg/dl (203-444)
--- NOTE | 2019-02-06 07:24 | NURSING ---
called Dr. Mays and notified of recent lab levels. ordered 1 additional unit of blood and hgb level to be drawn 2 hours after transfusion
--- NOTE | 2019-02-06 09:32 | PCM.PN.OB ---
Patient Problems: Active and Suspected Problems (Last Reviewed 02/04/19 @ 09:59 by Kavita Sanchez) Late deceleration of heart rate (Acute) Vaginal bleeding during (Acute) Placental abruption (Acute) Subjective: vaginal bleeding minimal- bakri balloon still in place. additional unit of blood transfusing. pain controlled. no CP SOB N V dizziness. - Physical Exam General: Alert, Oriented x3 Lungs: Normal air movement Cardiovascular: Regular rate, Regular Rhythm Abdomen: Soft, Non Tender, Non-Distended Vital Signs Temp Pulse Resp BP Pulse Ox 98.3 F 80 16 97/52 L 99 02/06/19 08:28 02/06/19 08:28 02/06/19 08:28 02/06/19 08:28 02/06/19 08:28 Oxygen Flow Rate (L/min) 2 Oxygen Delivery Method Room Air Weight: 166 lb Body Mass Index (BMI) 30.3 Intake and Output for Last 24 Hours 02/04/19 02/05/19 02/06/19 23:59 23:59 23:59 Intake Total 6074 / 6074 2076 / 2077 Output Total 800 / 800 1900 / 1900 Balance 5274 / 5274 177 / 177 Laboratory Tests Past 24 Hrs 02/05/19 02/05/19 02/05/19 14:55 14:55 14:55 WBC 20.0 H RBC 3.58 L Hgb 11.9 L Hct 34.7 L MCV 96.9 MCH 33.2 H MCHC 34.3 RDW 14.1 RDW Differential 50.0 H Plt Count 95 L MPV 8.6 Immature Gran % (Auto) 0.800 Neut % (Auto) 82.6 H Lymph % (Auto) 9.6 L [place] % (Auto) 6.3 Eos % (Auto) 0.5 Baso % (Auto) 0.2 Absolute Neuts (auto) 16.5 H Absolute Lymphs (auto) 1.91 Total Counted Not Reportable Differential Comment SCANNED PT INR APTT Fibrinogen Blood Type AB POSITIVE Antibody Screen NEGATIVE Crossmatch See Detail 02/05/19 02/05/19 02/05/19 14:55 15:49 17:15 WBC 12.2 H RBC 2.58 L Hgb 8.7 L Hct 25.2 L MCV 97.7 MCH 33.7 H MCHC 34.5 RDW 14.1 RDW Differential 50.2 H Plt Count 68 L MPV 8.3 Immature Gran % (Auto) Neut % (Auto) Lymph % (Auto) [place] % (Auto) Eos % (Auto) Baso % (Auto) Absolute Neuts (auto) Absolute Lymphs (auto) Total Counted Differential Comment PT 21.9 H INR 1.9 APTT 36.2 Fibrinogen 60 L* Blood Type Antibody Screen Crossmatch See Detail 02/05/19 02/06/19 02/06/19 17:15 00:45 00:45 WBC 13.4 H RBC 2.64 L Hgb 8.1 L Hct 23.5 L MCV 89.0 MCH 30.7 MCHC 34.5 RDW 17.2 H RDW Differential 53.9 H Plt Count 107 L MPV 8.4 Immature Gran % (Auto) 0.300 Neut % (Auto) 80.0 H Lymph % (Auto) 8.4 L [place] % (Auto) 10.9 H Eos % (Auto) 0.3 Baso % (Auto) 0.1 Absolute Neuts (auto) 10.7 H Absolute Lymphs (auto) 1.12 Total Counted Not Reportable Differential Comment PT 21.5 H 15.9 H INR 1.9 1.3 APTT 36.0 28.4 Fibrinogen 71 L* 192 L Blood Type Antibody Screen Crossmatch 02/06/19 02/06/19 06:35 06:35 WBC 10.6 RBC 2.23 L Hgb 7.0 L Hct 19.7 L MCV 88.3 MCH 31.4 MCHC 35.5 RDW 18.1 H RDW Differential 58.7 H Plt Count 86 L MPV 8.8 Immature Gran % (Auto) Neut % (Auto) Lymph % (Auto) [place] % (Auto) Eos % (Auto) Baso % (Auto) Absolute Neuts (auto) Absolute Lymphs (auto) Total Counted Differential Comment PT INR APTT Fibrinogen 242 Blood Type Antibody Screen Crossmatch Medical Necessity - Tobacco Use Smoking Status: Light Smoker (<10/day) Assessment/Plan All Active Problems (Last Reviewed 02/04/19 @ 09:59 by Kavita Sanchez) Late deceleration of heart rate (Acute) Vaginal bleeding during (Acute) Placental abruption (Acute) Anemia during (Acute) (Acute) Tobacco use affecting , antepartum (Acute) Supervision of high-risk (Acute) Anxiety (Acute) Abnormal Pap smear of cervix (Acute) s/p LTCS secondary to abruption 1. anemia secondary to acute blood loss with consumptive coagulopathy- transfusing 3rd unit of PRBCs, s/p 3 U FFP and 5 pack of platelets. check Hg 2 hours after transfusion. fibrinogen stable. 2. continue bakri balloon until this afternoon- s/p additional antibiotics. 3. ambulate after balloon discontinued, oral pain control
[2019-02-06 13:03] LABS: Hemoglobin 8.2 g/dl (12.0-15.0)
--- NOTE | 2019-02-06 13:15 | NURSING ---
This RN released 150cc out of balloon tamponade at this time.
[2019-02-06] MEDS: oxyCODONE 5 MG Tablet PO ×3 (13:40→22:52)
--- NOTE | 2019-02-06 15:08 | NURSING ---
This RN released 190ml out of balloon tamponade and D/C'd at this time.
[2019-02-06] MEDS: Naproxen 250 MG Tablet PO (16:41)
[2019-02-06] MEDS: Senna/Docusate Sodium 1 Tablet PO (22:53)
--- NOTE | 2019-02-07 01:48 | NURSING ---
Patients nipples are red B/L. Bruising is noted on the right nipple. Patient states that nipples are sore and tender. Instructed patient on use of pump so she can pump while is in SCN.
[2019-02-07 02:30] VITALS: BP 102/63; PULSE 75; RESP 16; TEMP 36.8; O2SAT 96
[2019-02-07] MEDS: oxyCODONE 5 MG Tablet PO ×2 (03:01→07:47)
[2019-02-07] MEDS: Naproxen 250 MG Tablet PO ×3 (06:01→23:02)
--- NOTE | 2019-02-07 06:40 | PCM.PN.OB ---
Patient Problems: Active and Suspected Problems (Last Reviewed 02/04/19 @ 09:59 by Kavita Sanchez) Late deceleration of heart rate (Acute) Vaginal bleeding during (Acute) Placental abruption (Acute) Subjective: improving- no cp sob n v, just had unger removed and will ambulate more. pain fairly controlled. bleeding minimal - Physical Exam General: Alert, Oriented x3 Abdomen: Soft, Non-Distended Vital Signs Temp Pulse Resp BP Pulse Ox 98.3 F 75 16 102/63 96 02/07/19 02:30 02/07/19 02:30 02/07/19 02:30 02/07/19 02:30 02/07/19 02:30 Oxygen Flow Rate (L/min) 2 Oxygen Delivery Method Room Air Weight: 166 lb Body Mass Index (BMI) 30.3 Intake and Output for Last 24 Hours 02/05/19 02/06/19 02/07/19 23:59 23:59 23:59 Intake Total 6074 / 6074 2477 / 2477 Output Total 800 / 800 4100 / 4100 1000 / 1000 Balance 5274 / 5274 -1623 / -1623 -1000 / -1000 Laboratory Tests Past 24 Hrs 02/05/19 02/06/19 02/06/19 14:55 06:35 06:35 WBC 10.6 RBC 2.23 L Hgb 7.0 L Hct 19.7 L MCV 88.3 MCH 31.4 MCHC 35.5 RDW 18.1 H RDW Differential 58.7 H Plt Count 86 L MPV 8.8 Fibrinogen 242 Crossmatch See Detail 02/06/19 12:50 WBC RBC Hgb 8.2 L Hct MCV MCH MCHC RDW RDW Differential Plt Count MPV Fibrinogen Crossmatch Medical Necessity - Tobacco Use Smoking Status: Light Smoker (<10/day) Assessment/Plan All Active Problems (Last Reviewed 02/04/19 @ 09:59 by Kavita Sanchez) Late deceleration of heart rate (Acute) Vaginal bleeding during (Acute) Placental abruption (Acute) Anemia during (Acute) (Acute) Tobacco use affecting , antepartum (Acute) Supervision of high-risk (Acute) Anxiety (Acute) Abnormal Pap smear of cervix (Acute) s/p LTCS secondary to abruption pod 2 1. anemia secondary to acute blood loss with consumptive coagulopathy- s/p 3 units of PRBCs, s/p 3 U FFP and 5 pack of platelets. stable. 2. hemorrhage secondary to coagulopathy- bakri balloon removed. given methergine, hemabate, and tranexamic acid. stable. 3. increase ambulation, oral pain control.
[2019-02-07] MEDS: Senna/Docusate Sodium 1 Tablet PO (07:49)
[2019-02-07 10:00] VITALS: BP 125/80; PULSE 73; RESP 16; TEMP 36.6
[2019-02-07] MEDS: Acetaminophen 500 MG Tablet 1000 MG PO ×2 (11:20→20:58)
[2019-02-07 16:45] VITALS: BP 106/64; PULSE 64; RESP 16; TEMP 36.5
[2019-02-07 21:15] VITALS: BP 132/57; PULSE 61; RESP 17; TEMP 36
[2019-02-08 03:00] VITALS: BP 111/67; PULSE 57; RESP 17
[2019-02-08] MEDS: Acetaminophen 500 MG Tablet 1000 MG PO ×3 (05:03→22:57)
[2019-02-08] MEDS: Naproxen 250 MG Tablet PO ×2 (06:32→15:55)
[2019-02-08 09:00] VITALS: BP 112/73; PULSE 71; RESP 18; TEMP 36.3
--- NOTE | 2019-02-08 10:37 | PCM.PN.OB ---
Patient Problems: Active and Suspected Problems (Last Reviewed 02/04/19 @ 09:59 by Kavita Sanchez) Late deceleration of heart rate (Acute) Vaginal bleeding during (Acute) Placental abruption (Acute) Subjective: progressing well, no CP SOB NV co gas pains, limiting narcotics because of this - Physical Exam General: Alert, Oriented x3 Vital Signs Temp Pulse Resp BP Pulse Ox 96.8 F L 57 L 17 111/67 96 02/07/19 21:15 02/08/19 03:00 02/08/19 03:00 02/08/19 03:00 02/07/19 02:30 Oxygen Flow Rate (L/min) 2 Oxygen Delivery Method Room Air Weight: 166 lb Body Mass Index (BMI) 30.3 Intake and Output for Last 24 Hours 02/06/19 02/07/19 02/08/19 23:59 23:59 23:59 Intake Total 2477 / 2477 Output Total 4100 / 4100 1000 / 1000 Balance -1623 / -1623 -1000 / -1000 Medical Necessity - Tobacco Use Smoking Status: Light Smoker (<10/day) Assessment/Plan All Active Problems (Last Reviewed 02/04/19 @ 09:59 by Kavita Sanchez) Late deceleration of heart rate (Acute) Vaginal bleeding during (Acute) Placental abruption (Acute) Anemia during (Acute) (Acute) Tobacco use affecting , antepartum (Acute) Supervision of high-risk (Acute) Anxiety (Acute) Abnormal Pap smear of cervix (Acute) s/p LTCS secondary to abruption pod 3 1. anemia secondary to acute blood loss with consumptive coagulopathy- s/p 3 units of PRBCs, s/p 3 U FFP and 5 pack of platelets. stable. 2. hemorrhage secondary to coagulopathy- bakri balloon removed. given methergine, hemabate, and tranexamic acid. stable. 3. oral pain control, increase ambulation
[2019-02-08 14:05] VITALS: BP 119/75; PULSE 74; RESP 16; TEMP 36.6
[2019-02-08 22:45] VITALS: BP 121/71; PULSE 66; RESP 18; TEMP 36.2; O2SAT 96
[2019-02-08] MEDS: Senna/Docusate Sodium 1 Tablet PO (22:57)
[2019-02-09] MEDS: Naproxen 250 MG Tablet PO ×3 (01:47→18:48)
[2019-02-09 02:00] VITALS: BP 129/67; PULSE 74; RESP 18; TEMP 36.2; O2SAT 96
[2019-02-09] MEDS: oxyCODONE 5 MG Tablet PO ×2 (02:01→15:41)
[2019-02-09] MEDS: Metoclopramide 10 MG Tablet PO (04:50)
[2019-02-09 05:29] LABS: Hemoglobin 7.8 g/dl (12.0-15.0)
--- NOTE | 2019-02-09 07:02 | NURSING ---
Dr Mays informed of pts gas pain in back and shoulder. Abdomen soft but more distended. Pt reports passing only small amount of gas, no BM noted. Orders given
[2019-02-09 08:00] VITALS: BP 114/72; PULSE 69; RESP 16; TEMP 36.3
[2019-02-09] MEDS: Bisacodyl 5 MG Tablet 10 MG PO (09:50)
[2019-02-09] MEDS: Senna/Docusate Sodium 1 Tablet PO (09:50)
--- NOTE | 2019-02-09 11:03 | PN.OBGYN_ITS ---
Patient Problems: Active and Suspected Problems (Last Reviewed 02/04/19 @ 09:59 by Kavita Sanchez) Late deceleration of heart rate (Acute) Vaginal bleeding during (Acute) Placental abruption (Acute) Subjective: doing well no complaints pain controlled no CP SOB N V ambulating well tolerating po lochia moderate, going well - Physical Exam General: Alert, Oriented x3 Vital Signs Temp Pulse Resp BP Pulse Ox 97.2 F L 74 18 129/67 H 96 02/09/19 02:00 02/09/19 02:00 02/09/19 02:00 02/09/19 02:00 02/09/19 02:00 Oxygen Flow Rate (L/min) 2 Oxygen Delivery Method Room Air Weight: 166 lb Body Mass Index (BMI) 30.3 Intake and Output for Last 24 Hours 02/07/19 02/08/19 02/09/19 23:59 23:59 23:59 Output Total 1000 / 1000 Balance -1000 / -1000 Laboratory Tests Past 24 Hrs 02/05/19 02/09/19 14:55 04:53 Hgb 7.8 L Crossmatch See Detail Medical Necessity - Tobacco Use Smoking Status: Light Smoker (<10/day) Assessment/Plan All Active Problems (Last Reviewed 02/04/19 @ 09:59 by Kavita Sanchez) Late deceleration of heart rate (Acute) Vaginal bleeding during (Acute) Placental abruption (Acute) Anemia during (Acute) (Acute) Tobacco use affecting , antepartum (Acute) Supervision of high-risk (Acute) Anxiety (Acute) Abnormal Pap smear of cervix (Acute) s/p LTCS secondary to abruption pod 4 1. anemia secondary to acute blood loss with consumptive coagulopathy- s/p 3 un its of PRBCs, s/p 3 U FFP and 5 pack of platelets. stable. 2. hemorrhage secondary to coagulopathy- bakri balloon removed. given methergine, hemabate, and tranexamic acid. stable. 3. oral pain control, increase ambulation dc home today
--- NOTE | 2019-02-09 11:04 | DCINST_ITS ---
Discharge Diet: No Restrictions Discharge Activity: May Not Drive - for 2 weeks, May not drive while taking narcotic pain medications., May Shower, May Take a Tub Bath - in 7 days May resume sexual activity in: 4-6 weeks Lifting Restrictions: 20 pounds Additional Activity Instructions:: Nothing in the vagina for 4-6 weeks. You may return to work/school in 6 weeks. Call your doctor if your incision/area has: Continuous Slow Oozing, Sudden Increased Bleeding, Increased Pain/ Swelling, Increased Redness, Foul Smelling Discharge Call your doctor if you observe: Fever of 101 or Higher, Using more than one pad per hour - for 2 hours Suture Line Care: Avoid Pulling/Pushing, Avoid Pinching/Bending Cleanse incision/area with: Keep Dressing Clean & Dry Additional Instructions: If you experience any of the following, contact your healthcare provider. * Bleeding that soaks a pad every hour for 2 hours * Fever 100.4 or higher * Unrelieved incision or abdominal pain * Swelling, redness, discharge or bleeding from your incision or episiotomy site * Your incision begins to separate * Problems urinating (including inability to urinate or burning while urinating). * Visual changes * Severe headache * Flu-like symptoms * Pain or redness in one of both of your breasts * Pain, warmth, tenderness or swelling in your legs, especially the calf area * Frequent nausea and vomiting * Symptoms of depression or anxiety If you experience any of the following, call 911 or go to the nearest Emergency Room. * Chest pain * Problems breathing * Seizure activity * Partial or complete paralysis of a body part, slurred speech, weakness or drooping of the face, or a sudden inability to walk or hold your balance Allergies/Adverse Reactions: Allergies No Known Allergies Allergy (Verified 02/04/19 09:59) Medications to take at Discharge vitamin#30 30 mg iron-10 mg iron-folic acid 1 mg-omg3 capsule 1 cap PO DAILY cap 07/11/18 Docusate Sodium [Colace] 100 mg PO DAILY 02/06/19 Naproxen [Naprosyn] 250 - 500 mg PO Q8H PRN PRN #30 tab 02/09/19 Oxycodone HCl/Acetaminophen [Percocet 5-325] 1 - 2 tab PO Q4H PRN PRN 7 Days #15 tab 02/09/19 The following prescriptions were given: Naproxen [Naprosyn] 250 - 500 mg PO Q8H PRN PRN #30 tab PRN Reason: MILD PAIN Transmission Status: Sent to [facility] Oxycodone HCl/Acetaminophen [Percocet 5-325] 1 - 2 tab PO Q4H PRN PRN 7 Days #15 tab PRN Reason: Pain Transmission Status: Sent to [facility] Follow-Up: Call to make an appointment with your doctor for an incision check in 1-2 weeks. You will also need a 6 week post- follow up appointment. Test results from this visit will be discussed in further detail at your follow- up appointment, if applicable. Please Follow Up With: Jennifer Mays MD - Call to make an appointment for an incision check in 1-2 [phone] When: You will need a post- check in 6 weeks. Primary Care Physician: [facility] ,Out of [Primary Care Provider] -
--- NOTE | 2019-02-09 11:05 | DS.PCM_ITS ---
Discharge Date and Diagnosis - Problem List Patient Problems: Active and Suspected Problems (Last Reviewed 02/04/19 @ 09:59 by Kavita Sancehz) Late deceleration of heart rate (Acute) Vaginal bleeding during (Acute) Placental abruption (Acute) Date of Admission: 02/05/19 Date of Discharge: 02/09/19 - Primary Discharge Diagnosis Active and Suspected Problems (Last Reviewed 02/04/19 @ 09:59 by Kavita zhong) Late deceleration of heart rate (Acute) Vaginal bleeding during (Acute) Placental abruption (Acute) Hospital Course and Treatment Operations: - - ltcs Summary of Care Provided: The patient is a 33 year old F presents with acute placental abruption. she was delivered by primary and she had a delayed hemorrhage due to consumptive coagulopathy. she was transfused 3 U PRBCs, 3U FFPS, pack of platelets, had a bakri balloon for over 12 hours, and then stabilized and had a return of bowel and bladder function. she was stable for dc to home on pod 4 Patient Problems: Active and Suspected Problems (Last Reviewed 02/04/19 @ 09:59 by Kavita Sanchez) Late deceleration of heart rate (Acute) Vaginal bleeding during (Acute) Placental abruption (Acute) - Physical Exam Vital Signs Temp Pulse Resp BP Pulse Ox 97.2 F L 74 18 129/67 H 96 02/09/19 02:00 02/09/19 02:00 02/09/19 02:00 02/09/19 02:00 02/09/19 02:00 Oxygen Flow Rate (L/min) 2 Oxygen Delivery Method Room Air Weight: 166 lb Body Mass Index (BMI) 30.3 Intake and Output for Last 24 Hours 02/07/19 02/08/19 02/09/19 23:59 23:59 23:59 Output Total 1000 / 1000 Balance -1000 / -1000 Laboratory Tests Past 24 Hrs 02/05/19 02/09/19 14:55 04:53 Hgb 7.8 L Crossmatch See Detail Discharge Diet: No Restrictions Discharge Activity: May Not Drive - for 2 weeks, May not drive while taking narcotic pain medications., May Shower, May Take a Tub Bath - in 7 days May resume sexual activity in: 4-6 weeks Additional Activity Instructions:: Nothing in the vagina for 4-6 weeks. You may return to work/school in 6 weeks. Call your doctor if your incision/area has: Continuous Slow Oozing, Sudden Increased Bleeding, Increased Pain/ Swelling, Increased Redness, Foul Smelling Discharge Call your doctor if you observe: Fever of 101 or Higher, Using more than one pad per hour - for 2 hours Suture Line Care: Avoid Pulling/Pushing, Avoid Pinching/Bending Cleanse incision/area with: Keep Dressing Clean & Dry Home Medications: Medications to take at Discharge vitamin#30 30 mg iron-10 mg iron-folic acid 1 mg-omg3 capsule 1 cap PO DAILY cap 07/11/18 Docusate Sodium [Colace] 100 mg PO DAILY 02/06/19 Naproxen [Naprosyn] 250 - 500 mg PO Q8H PRN PRN #30 tab 02/09/19 Oxycodone HCl/Acetaminophen [Percocet 5-325] 1 - 2 tab PO Q4H PRN PRN 7 Days #15 tab 02/09/19 Following Prescrptions Were Given to Patient: Naproxen [Naprosyn] 250 - 500 mg PO Q8H PRN PRN #30 tab PRN Reason: MILD PAIN Transmission Status: Sent to [facility] Oxycodone HCl/Acetaminophen [Percocet 5-325] 1 - 2 tab PO Q4H PRN PRN 7 Days #15 tab PRN Reason: Pain Transmission Status: Sent to [facility] Primary Care Physician: Lindsey Bruno,Out of [Primary Care Provider] - Please Follow Up With: Jennifer Mays MD - Call to make an appointment for an incision check in 1-2 [phone] When: You will need a post- check in 6 weeks. Medical Necessity - Tobacco Use Smoking Status: Light Smoker (<10/day) Meaningful Use Info Meaningful Use Diagnoses (Choose all that apply): None applicable
[2019-02-09 14:00] VITALS: BP 118/72; RESP 16; TEMP 36.2
--- NOTE | 2019-02-09 16:30 | CASEMGMT ---
Referral ? Date of Intervention:?02/09/2019 Time of Intervention:?1630 ? Reason for Referral: Follow up to OB-ERT, offer support, educate to depression; baby admitted into [facility]. ? Informant: ?Medical records, mother of baby (MOB) Melisa, and father of baby (FOB) Kj Worthy. ? ? History Patient/MOB is 33 female, G1, P0 to 1 after delivering Natalia. ? care started at 10 weeks gestation. Baby girl Natalia Worthy was born full term at [facility] via stat caesarian section for non reassuring heart tones; placental abruption diagnosed per medical records. Baby transferred to the [facility] for issues related to low blood sugars. ? weight 7 pounds 9 ounces. ?Apgars 7 and 8 at 1 and 5 minutes of life. ?Prior to delivery MOB worked at [employer], based at [facility], helping in the classroom. ??FOB works for the [email or web address]. ??Housing, transportation, and supplies for baby are reported to be adequate. ???MOB reports personal history of depression and anxiety after MOB's mother when MOB was 18 years old. ?MOB reports history of counseling and medication, though not current interventions in use at this time. ??No reports of any drug or alcohol use or abuse for parents. ??No indications of abuse present and MOB denied this upon nursing admission assessment. Impression MOB and FOB receptive to social work visit and were educated that this investigative writer this write as the social worker school for [facility] delivery labor and delivery unit, also provides social work to the [facility] for continuity of care of families. ?This investigative writer had initially met FOB during delivery and present for support to the FOB due to nature of delivery. ???Educated MOB and FOB to depression and anxiety, risks present and importance of seeking out help and support should symptoms arise. ?MOB reports considering all that has happened with the process to feel to be doing well, denies depression or anxiety at this time. ??MOB reports understanding to be aware of symptoms of mood and anxiety disorders. ?MOB reports to be a person who talks and has no issues letting support system know when concerns are present. ??FOB asked appropriate questions as to what to look for and how to help, presenting as supportive to MOB. ??MOB and FOB report to be looking forward to taking baby home. ?FOB will be off for 2 weeks to help with transition home. ??MOB and FOB report to have adequate support system in place. ?Educated to [facility] and WIC available if needed or wanted in the future. ??MOB and FOB deny any concerns with home going other than just adjusting to having a new baby, but also voicing to be excited to get started at home. ??MOB held good eye contact, MOB and FOB talked calmly and were relaxed with each other during conversation with social worker school. ?Appropriate mood and affect noted with MOB, teary eyed at one point but appropriate to content being discussed. ? ? Plan MOB is discharging today. Baby to discharge to parents when ready to leave the [facility]. ?? depression packet given including online and local supports, [facility] information, shaken baby prevention, and safe sleeping handouts given. ?? ? Response to Plan:?MOB and FOB?does express understanding of proposed plan.??No other services requested or indicted.?? -PRERNA Jaffe, INDUSTRIAL CONTROLS TECHNICIAN
[2019-02-09 18:48] VITALS: BP 127/75; PULSE 69; RESP 16; TEMP 36.9; O2SAT 98
== END 2019-02-09 18:48 | disposition home or self-care (01) | DRG 787 ==
PROVIDERS: Admitting Provider Obstetrics & Gynecology; Visit Provider Obstetrics & Gynecology
DX: O45.093 Premature separation of placenta with other coagulation defect, third trimester (principal); O72.2 Delayed and secondary postpartum hemorrhage; D62 Acute posthemorrhagic anemia; O48.0 Post-term pregnancy; Z3A.40 40 weeks gestation of pregnancy; O76 Abnormality in fetal heart rate and rhythm complicating labor and delivery; O99.334 Smoking (tobacco) complicating childbirth; Z37.0 Single live birth; O90.81 Anemia of the puerperium
CPT/HCPCS: 59025; 59050; 85018; 85025; 85027; 85384; 85610; 85730; 86850; 86900; 86920; 86922; 86965; 88307; 99218; J7030; J7120; P9016; P9017; P9035; A4216; G0378; J2405

== ENCOUNTER → 2019-02-18 14:25 | Outpatient (CLI) | payer OTHER, SELFPAY ==
[2019-02-18 14:19] VITALS: BMI 30.3
[2019-02-18 15:17] LABS: Absolute Lymphocyte Count 2.41 X10^3/ul (0.83-4.51); Absolute Neutrophil Count 7.7 X10^3/uL (2.0-7.7); Basophil# 0.05 X10^3/uL; Basophil% 0.4 % (0-1); Eosinophil# 0.31 X10^3/uL; Eosinophils% 2.8 % (0-5); Hematocrit 33.7 % (37-47); Hemoglobin 11.1 g/dl (12.0-15.0); Lymphocyte # 2.41 X10^3/ul (4.0); Lymphocyte % 21.6 % (19-41); Mean Corp Hgb Conc 32.9 g/gl (32-36); Mean Corpuscular Hgb 30.8 pg (27.0-32.0); Mean Corpuscular Volume 93.6 fL (81-99); Mean Platelet Vol. 7.7 fl (6.2-12.0); Monocyte# 0.63 X10^3/uL; Monocyte% 5.6 % (0-10); Neutrophil # 7.71 X10^3/uL (2.7-7.7); Neutrophil % 69.1 % (47-70); Platelet Count 484 K/mm3 (150-450); RBC Distribution Width CV 15.5 % (11.6-14.6); RBC Distribution Width SD 52.5 fl (35.1-43.9); White Blood Count 11.2 K/mm3 (4.4-11.0)
[2019-02-18 15:18] LABS: POSITIVE COUNT NO; POSITIVE DIFFERENTIAL NO; POSITIVE MORPHOLOGY NO
== END ==
PROVIDERS: Referring Provider Nurse Practitioner Women's Health; Visit Provider Nurse Practitioner Women's Health
DX: O99.019 Anemia complicating pregnancy, unspecified trimester (principal); Z3A.00 Weeks of gestation of pregnancy not specified
CPT/HCPCS: 36415; 85025

== ENCOUNTER → 2019-03-19 14:12 | Outpatient (CLI) | payer OTHER, SELFPAY ==
[2019-03-19 13:48] VITALS: BMI 30.3
[2019-03-19 16:06] LABS: T4 Free Direct 0.73 ng/dL (0.76-1.46); Thyroid Stim Hormone (TSH) 1.72 uIU/mL (0.358-3.74)
== END ==
PROVIDERS: Referring Provider Obstetrics & Gynecology; Visit Provider Obstetrics & Gynecology
DX: E07.9 Disorder of thyroid, unspecified (principal)
CPT/HCPCS: 36415; 84439; 84443

== ENCOUNTER → 2019-03-23 15:19 | Outpatient (CLI) | payer OTHER, SELFPAY ==
[2019-03-19 13:48] VITALS: BMI 30.3
--- NOTE | 2019-03-23 15:26 | US_ITS ---
STUDY: THYROID ULTRASOUND REASON FOR EXAM: Female, 33 years old. Thyromegaly TECHNIQUE: Ultrasound evaluation of the thyroid was performed with real-time and static gaona-scale imaging. COMPARISON: None. FINDINGS: RIGHT LOBE: The right lobe of the thyroid gland measures 5.5 x 1.4 x 1.9 cm. There is a homogeneous echotexture. There is a well-defined mixed solid/cystic nodule of the mid pole measuring 6 mm. There is minimal perinodular vascularity. LEFT LOBE: The left lobe of the thyroid gland measures 4.1 x 1.7 x 1.2 cm. There is a homogeneous echotexture. There is a well-defined lower pole cyst measuring 5 x 5 x 3 mm. There is minimal pericystic vascularity. ISTHMUS: The isthmus measures 3 millimeters. The regional lymph nodes are normal. US/Thyroid IMPRESSION: 6 mm mixed solid/cystic nodule of the mid pole of the right thyroid lobe. Well-defined lower pole cyst of the left thyroid lobe measuring 5 x 5 x 3 mm. Findings correspond to TIRADS 2, findings not suspicious for malignancy. Follow-up ultrasound in one year is recommended to assess for stability. Electronically Signed: Zeke Cho MD at 16:26 EDT , Service support ,
== END ==
PROVIDERS: Referring Provider Obstetrics & Gynecology; Visit Provider Obstetrics & Gynecology
DX: E01.0 Iodine-deficiency related diffuse (endemic) goiter (principal)
CPT/HCPCS: 76536

== ENCOUNTER → 2020-04-14 12:56 | Outpatient (CLI) | payer OTHER, SELFPAY ==
[2020-04-14 09:58] VITALS: BMI 30.3
[2020-04-18 12:24] LABS: HPV APTIMA, High Risk Negative (Negative)
== END ==
PROVIDERS: Referring Provider Nurse Practitioner Women's Health; Visit Provider Nurse Practitioner Women's Health
DX: Z12.4 Encounter for screening for malignant neoplasm of cervix (principal)
CPT/HCPCS: 87624; 88175; G0145

== ENCOUNTER → 2021-01-12 11:18 | Outpatient (CLI) | payer OTHER, SELFPAY ==
[2020-12-29 13:27] VITALS: BMI 30.3
--- NOTE | 2021-01-12 11:21 | US_ITS ---
STUDY: ULTRASOUND OF THE FEMALE PELVIS - COMPLETE REASON FOR EXAM: Female, 35 years old. Abnormal uterine bleeding. LMP: 12/27/2020 TECHNIQUE: Transabdominal and Transvaginal TECHNICAL QUALITY: Adequate. COMPARISON: None. FINDINGS: The uterus is anteverted and is in a midline position. The uterus measures 8.6 cm x 3.4 cm x 4.6 cm. There is a Nabothian cyst of the cervix. The endometrium measures 2.3 mm in thickness, and is hyperechoic. There is no demonstrated endometrial mass. There is a 2 cm x 1.7 cm x 1.9 cm fundal fibroid. Heterogeneous appearance of the uterus. I.U.D. - The patient does have an I.U.D. The right ovary is visualized. The right ovary measures 2.1 cm x 2.1 cm x 1.3 cm. There is no right ovarian cyst or ovarian mass. There is no visualized right adnexal mass or complex lesion. There is normal arterial and normal venous vascularity. The left ovary is visualized. The left ovary measures 3.9 cm x 3.2 cm x 2.9 cm. There is a 2.8 cm x 2.7cm x 2.7 cm left ovarian cyst. There is no visualized left adnexal mass or complex lesion. There is normal arterial and normal venous vascularity. There is no fluid in the cul-de-sac. The pre void volume of the bladder was 617 ml. US/Pelvic (Non ) IMPRESSION: Fibroid uterus. 2.8 cm x 2.7 cm x 2.7 cm left ovarian cyst. Electronically Signed: Jett Lewis MD at 15:07 EDT , Service support ,
--- NOTE | 2021-01-12 11:21 | US_ITS ---
STUDY: ULTRASOUND OF THE FEMALE PELVIS - COMPLETE REASON FOR EXAM: Female, 35 years old. Abnormal uterine bleeding. LMP: 12/27/2020 TECHNIQUE: Transabdominal and Transvaginal TECHNICAL QUALITY: Adequate. COMPARISON: None. FINDINGS: The uterus is anteverted and is in a midline position. The uterus measures 8.6 cm x 3.4 cm x 4.6 cm. There is a Nabothian cyst of the cervix. The endometrium measures 2.3 mm in thickness, and is hyperechoic. There is no demonstrated endometrial mass. There is a 2 cm x 1.7 cm x 1.9 cm fundal fibroid. Heterogeneous appearance of the uterus. I.U.D. - The patient does have an I.U.D. The right ovary is visualized. The right ovary measures 2.1 cm x 2.1 cm x 1.3 cm. There is no right ovarian cyst or ovarian mass. There is no visualized right adnexal mass or complex lesion. There is normal arterial and normal venous vascularity. The left ovary is visualized. The left ovary measures 3.9 cm x 3.2 cm x 2.9 cm. There is a 2.8 cm x 2.7cm x 2.7 cm left ovarian cyst. There is no visualized left adnexal mass or complex lesion. There is normal arterial and normal venous vascularity. There is no fluid in the cul-de-sac. The pre void volume of the bladder was 617 ml. US/Transvaginal Non- IMPRESSION: Fibroid uterus. 2.8 cm x 2.7 cm x 2.7 cm left ovarian cyst. Electronically Signed: Jett Lewis MD at 15:07 EDT , Service support ,
[2021-01-12 14:02] LABS: NATERA MAILED SPECIMEN
== END ==
PROVIDERS: PCP Family Medicine; Referring Provider Obstetrics & Gynecology; Visit Provider Obstetrics & Gynecology
DX: N93.9 Abnormal uterine and vaginal bleeding, unspecified (principal); N94.6 Dysmenorrhea, unspecified
CPT/HCPCS: 36415; 76830; 76856

== ENCOUNTER → 2022-10-01 | Outpatient (CLI) | payer OTHER, SELFPAY ==
--- NOTE | 2022-10-01 09:52 | US_ITS ---
EXAM: US ABDOMEN COMPLETE CLINICAL INDICATION: UPPER QUAD PAIN TECHNIQUE: Real-time ultrasound of the abdomen with image documentation. This report was created using [employer] report generation technology. COMPARISON: None. FINDINGS: LIVER: Main portal vein is patent with hepatopedal reduction of blood flow. Echogenic/fatty liver. No focal hepatic masses. Liver measures 14.2 cm in length. GALLBLADDER: Unremarkable gallbladder with sonographic Dangelo''s sign noted be absent. No gallbladder wall thickening is demonstrated. No pericholecystic fluid. COMMON BILE DUCT: Unremarkable as visualized. The proximal common bile duct is within normal limits for the patient''s age. PANCREAS: Pancreas is unremarkable. No pancreatic ductal dilatation. KIDNEYS: Right kidney is normal. Left kidney is normal. There is no hydronephrosis. No shadowing calculus. No focal lesion or perinephric collection is demonstrated. SPLEEN: Spleen is unremarkable. AORTA: Aorta is without aneurysm. INFERIOR VENA CAVA: IVC is patent. FREE FLUID: No ascites. US/Abdomen Complete IMPRESSION: Hepatic steatosis. No other significant abnormalities. Electronically Signed: Rashad Worthy MD at 3:38 EST ,
[2022-10-01 10:58] LABS: Absolute Lymphocyte Count 0.93 X10^3/uL (0.83-4.51); Absolute Neutrophil Count 4.2 X10^3/uL (2.0-7.7); Basophil# 0.04 X10^3/uL; Basophil% 0.7 % (0-1); Eosinophil# 0.09 X10^3/uL; Eosinophils% 1.5 % (0-5); Hematocrit 39.7 % (37-47); Hemoglobin 13.5 g/dL (12.0-15.0); Lymphocyte # 0.93 X10^3/ul (0.83-4.51); Lymphocyte % 15.2 % (19-41); Mean Corpuscular Hgb 37.5 pg (27.0-32.0); Mean Corpuscular Volume 110.3 fL (81-99); Mean Platelet Vol. 9.5 fl (6.2-12.0); Monocyte# 0.85 X10^3/uL; Monocyte% 13.9 % (0-10); NRBC Flagged by Analyzer 0 % (0-5); Neutrophil % 68.4 % (47-70); Platelet Count 172 K/mm3 (150-450); RBC Distribution Width CV 11.7 % (11.6-14.6); RBC Distribution Width SD 47.5 fl (35.1-43.9); White Blood Count 6.1 K/mm3 (4.4-11.0)
[2022-10-01 11:46] LABS: Vitamin D,25 Hydroxy 7.9 ng/mL
[2022-10-01 12:03] LABS: ALB/GLOB Ratio 1.2 RATIO (0.9-2.4); AST(SGOT) 315 U/L (15-37); Alanine Aminotransfer ALT/SGPT 243 U/L (13-56); Albumin, Serum 4.4 g/dL (3.2-5.0); Alkaline Phosphatase 68 U/L (45-117); Anion Gap 8 (5-15); BUN 9 mg/dL (7-18); BUN/Creat Ratio 10.4 RATIO (10-20); Calcium,Total 10.1 mg/dL (8.5-10.1); Chloride 97 mmol/L (98-107); Cholesterol 271 mg/dL (200); Creatinine, Serum 0.86 mg/dL (0.55-1.02); EST Glomerular Filtration Rate 78 mL/min (>60); Est Glom Filt Rate - Afr Amer 95 mL/min (>60); GGTP 526 U/L (5-55); Globulin 3.6 g/dL (2.2-4.2); Glucose 119 mg/dL (74-106); High Density Lipoprotein 150 mg/dL; Potassium 3.6 mmol/L (3.5-5.1); Sodium Level 137 mmol/L (136-145); Thyroid Stim Hormone (TSH) 1.93 uIU/mL (0.358-3.74); Triglycerides 48 mg/dL; Very Low Density Lipoprotein 10 mg/dL (5-40)
== END | disposition home or self-care (01) ==
PROVIDERS: PCP Family Medicine; Referring Provider Family Medicine; Visit Provider Family Medicine
DX: Z00.00 Encounter for general adult medical examination without abnormal findings (principal); F10.90 Alcohol use, unspecified, uncomplicated; R10.11 Right upper quadrant pain; K21.9 Gastro-esophageal reflux disease without esophagitis
CPT/HCPCS: 36415; 76700; 80053; 80061; 82306; 82977; 84443; 85025

== ENCOUNTER → 2023-10-11 | Outpatient (CLI) | payer OTHER, SELFPAY ==
--- OUTSIDE RECORDS SUMMARY | 2023-10-11 10:12 | XMS RPT_ITS | CCD ---
Author Name Unknown Address [address] [place] [address] Organization [facility] Care Team Providers Care Emergency Dept Tech Name Role Phone MENA YUNG Attending Unavailable JIMMY TILLEY Referring Unavailpercy [facility], Primary Care Unavailable Unavailable Primary Care Provider UnavailKATHRYN Barrios Referring Unavailable KATHRYN RANDHAWA Attending Unavailable KATHRYN RANDHAWA Attending Unavailable KATHRYN RANDHAWA Referring Unavailable KATHRYN RANDHAWA Attending Unavailable Allergies Allergy Classification Reported Allergen(s) Allergy Type Date of Onset Reaction(s) Facility (4 sources) Pollen; Translations: [POLLEN] Propensity to adverse reactions 12-25-2007 Intolerance [facility] Medications Current Medications Medication Drug Class(es) Dates Sig (Normalized) Sig (Original) acetaminophen 325 mg / HYDROcodone bitartrate 5 mg oral tablet (2 sources) Opioid Agonist Start: 05-30-2022 End: 06-04-2022 take 1 tablet by mouth every eight hours as needed for pain HYDROcodone-acetami nophen (NORCO) 5-325 mg per tablet Indications: Postoperative pain Take 1 tablet by mouth every 8 hours as needed for pain for up to 5 days. 15 tablet 0 05/30/2022 06/04/2022 Active Problems Active Problems Problem Classification Problem Date Documented Date Episodic/Chronic Anxiety disorders (3 sources) Anxiety state; Translations: [Generalized anxiety disorder] Onset: 07-02-2007 07-02-2007 Chronic Menstrual disorders (3 sources) Dysmenorrhea; Translations: [Dysmenorrhea, unspecified] Onset: 07-29-2007 07-29-2007 Chronic Mood disorders (3 sources) Depressive disorder; Translations: [Other specified depressive episodes] Onset: 06-26-2005 12-08-2006 Chronic Nonmalignant breast conditions (2 sources) Abscess of breast; Translations: [Abscess of the breast and nipple] Onset: 05-30-2022 Episodic Other nervous system disorders (1 source) Postoperative pain ; Translations: [Other acute postprocedural pain] Episodic Other nervous system disorders (1 source) Other acute postprocedural pain; Translations: [Postoperative pain] Onset: 05-30-2022 Episodic Other upper respiratory disease (3 sources) Allergic rhinitis; Translations: [Allergic rhinitis, unspecified] Onset: 01-15-2008 01-15-2008 Chronic Residual codes; unclassified (2 sources) Past history of procedure; Translations: [Other specified postprocedural states] Episodic Past or Other Problems Problem Classification Problem Date Documented Da te Episodic/Chronic Viral infection (3 sources) Verruca vulgaris; Translations: [Other viral warts] Onset: 01-15-2008 01-15-2008 Episodic Results Test Name Value Interpretation Reference Range Facil ity Vital Signs Date Time Vital Sign Value Performing Clinician Faci lity 06-18-2022 09:25-0500 Body height 160 cm Kathryn Randhawa MD Work Phone: [facility] 06-18-2022 09:25-0500 Body temperature 97.39 [degF] Kathryn Randhawa MD Work Phone: [facility] 06-18-2022 09:25-0500 Body weight 63.5 kg Kathryn Randhawa MD Work Phone: [facility] 06-18-2022 09:25-0500 Diastolic blood pressure 64 mm[Hg] Kathryn Randhawa MD Work Phone: [facility] 06-18-2022 09:25-0500 Heart rate 84 /min Kathryn Randhawa MD Work Phone: [facility] 06-18-2022 09:25-0500 SaO2% (BldA) [Mass fraction] 100 % Kathryn Randhawa MD Work Phone: [facility] 06-18-2022 09:25-0500 Systolic blood pressure 100 mm[Hg] Kathryn Randhawa MD Work Phone: [facility] 06-04-2022 08:43-0400 Body height 157.5 cm Kathryn Randhawa MD Work Phone: [facility] 10-24-2022 08:43-0400 Body temperature 97.5 [degF] Kathryn Randhawa MD Work Phone: [facility] 06-04-2022 08:43-0400 Body weight 64.95 kg Kathryn Randhawa MD Work Phone: [facility] 06-04-2022 08:43-0400 Diastolic blood pressure 80 mm[Hg] Kathryn Randhawa MD Work Phone: [facility] 06-04-2022 08:43-0400 Heart rate 83 /min Kathryn Randhawa MD Work Phone: [facility] 06-04-2022 08:43-0400 Respiratory rate 14 /min Kathryn Randhawa MD Work Phone: [facility] 06-04-2022 08:43-0400 SaO2% (BldA) [Mass fraction] 95 % Kathryn Randhawa MD Work Phone: [facility] 06-04-2022 08:43-0400 Systolic blood pressure 114 mm[Hg] Kathryn Randhawa MD Work Phone: [facility] 05-30-2022 15:45-0400 Body height 157.5 cm Kathrny Randhawa MD Work Phone: [facility] 05-30-2022 15:45-0400 Body temperature 97.11 [degF] Kathryn Randhawa MD Work Phone: [facility] 05-30-2022 15:45-0400 Body weight 63.69 kg Kathryn Randhawa MD Work Phone: [facility] 05-30-2022 15:45-0400 Diastolic blood pressure 78 mm[Hg] Kathryn Randhawa MD Work Phone: [facility] 05-30-2022 15:45-0400 Heart rate 92 /min Kathryn Randhawa MD Work Phone: [facility] 05-30-2022 15:45-0400 SaO2% (BldA) [Mass fraction] 96 % Kathryn Randhawa MD Work Phone: [facility] 05-30-2022 15:45-0400 Systolic blood pressure 112 mm[Hg] Kathryn Randhawa MD Work Phone: [facility] Encounters Encounter Date Encounter Type Care Provider Facility Start: 06-18-2022 End: 06-18-2022 ambulatory KATHRYN RANDHAWA Facility:[facility] Start: 06-18-2022 End: 06-18-2022 Patient encounter procedure Kathryn Randhawa MD Work Phone: General Surgery Plan of Treatment Date Care Activity Detail Author Start: 04-12-2022 Influenza vaccination INFLUENZA (#1) [facility] Start: 10-02-2021 COVID-19 VACCINE (4 - Booster for Moderna series) COVID-19 VACCINE (4 - Booster for Moderna series) [facility] Start: 2015 HPV TESTING HPV TESTING [facility] Start: 07-29-2012 PAP TESTING PAP TESTING [facility] Start: 2004 Urine microalbumin profile DTAP,TDAP ,TD (1 - Tdap) [facility] Start: 2003 HEPATITIS C SCREENING HEPATITIS C IA MIMA [facility] Start: 1985 HEPATITIS B (1 of 3 - 3-dose series) HEPATITIS B (1 of 3 - 3-dose series) [facility] [place] [facility] Immunizations Immunization Date Immunization Notes Care Provider Sandra lyons 07-01-2012 influenza virus vacc ine, unspecified formulation Kathryn Randhawa MD Work Phone: [facility] Payers Date Payer Category Payer Private Health Insurance [id number] 2021 Private Health Insurance [facility] CHO[facility] PLUS [id number] 2021-Present [phone] [address] [place] [address] HMO [id number] 1985 Unknown [id number] Social History Date Type Detail Facility Start: 05-30-2022 [facility] History of tobacco use Current smoker [facility] History of tobacco use Cigarette Smoker [facility] Start: 05-30-2022 End: 06-18-2022 Cigarettes smoked current (pack per day) - Reported 1 [facility] Start: 05-30-2022 Tobacco use and exposure Smoke less tobacco non-user [facility] Start: 05-30-2022 End: 06-18-2022 Alcohol intake Current drinker of alcohol (finding) [facility] Start: 11-28-2012 Alcohol Comment occas social [facility] Start: 1985 Sex Assigned At Female C leveland [facility] Start: 05-20-2022 End: 06-18-2022 Exposure to SARS-CoV-2 (event) Not sure [facility] Clinical Notes 05-30-2022 to 06-18-2022 Kathryn Randhawa MD - 06/18/2022 7:32 PM Jesus Randhawa MD - 06/04/2022 5:45 PM Maximo Randhawa MD - 06/01/2022 4:03 PM Maximo Randhawa MD - 05/30/2022 4:24 PM EDTPatient Instructions Note Date & Type Note Facility 06-18-2022 Note HNO ID: [id number] Author: Kathryn Randhawa MD Service: ? Author Type: Physician Type: Progress Notes Filed: 06/23/2022 2:50 PM Note Text: Melisa Worhty 1985 REFERRING PHYSICIAN: Kathryn Randhawa MD CHIEF COMPLAINT: Follow Up (Right breast abscess) HPI: The patient is a 36 year old female is s/p IANDD of right breast abscess. This was done on 05/30/2022. She denies any major problems. 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 PHYSICAL EXAMINATION: General: The patient is 36 year old female, well nourished, well hydrated in no acute distress. The patient is oriented to time, place, and person. VITALS: Blood pressure 100/64, pulse 84, temperature 36.3 ?C (97.4 ?F), height 160 cm (5' 3 ), weight 63.5 kg (140 lb), last menstrual period 09/27/2017, SpO2 100 %. Body mass index is 24.8 kg/m?. Head: Normal cephalic, atraumatic Eyes: pupils are equally round, sclera are clear/anicteric Neck is supple with no tracheal deviation Chest/breast: wound is granulating well, no surrounding erythema noted Respiratory: Normal respiratory excursion and pattern. Abdominal exam: benign Extremities: no clubbing, cyanosis or edema. Neuro: non focal Psych: normal mood Assessment IMPRESSION: status post IANDD of breast abscess PLAN: Continue dressing changes - dry gauze over wound. Patient is instructed to change dressings of the wound on a daily basis as follows. The patient is to take a daily shower and remove dressing at the time. Then the patient can clean wound with soap and water. Bleeding may occur from the granulation tissue and patient was told that this is normal. Dry area well and place gauze dressing over the wound and tape in place. Continue this until the skin has completely healed (that is - normal appearing skin) Patient is instructed to make an appointment to return to clinic if any worsening signs/symptoms. Patient will return to his PCP for medical care. Patient acknowledges above. The patient wishes to proceed. I have answered all questions to the patient?s satisfaction and the patient has no further questions. I have confirmed and edited as necessary, the PFSH and ROS obtained by others. . Diagnoses: (Z98.890) Status post incision and drainage (primary encounter diagnosis) Return to Clinic: The patient is to follow up as above. I spent a total of 7 minutes on the date of the service which included preparing to see the patient with review of any pertinent laboratory studies/radiological imaging/medical records, [id number] patient care, obtaining oral medical history from the patient in this encounter, performing a medically appropriate examination, counseling and educating the patient/family/caregiver, and completing appropriate medical documentation. Kathryn Randhawa MD [facility] 06-18-2022 History of Presen t illness Narrative Melisa Worthy 1985 REFERRING PHYSICIAN: Kathryn Randhawa MD CHIEF COMPLAINT: Follow Up (Right breast abscess) HPI: The patient is a 36 year old female is s/p I&D of right breast abscess. This was done on 05/30/2022. She denies any major problems. 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 PHYSICAL EXAMINATION: General: The patient is 36 year old female, well nourished, well hydrated in no acute distress. The patient is oriented to time, place, and person. VITALS: Blood pressure 100/64, pulse 84, temperature 36.3 C (97.4 F), height 160 cm (5' 3 ), weight 63.5 kg (140 lb), last menstrual period 09/27/2017, SpO2 100 %. Body mass index is 24.8 kg/m . Head: Normal cephalic, atraumatic Eyes: pupils are equally round, sclera are clear/anicteric Neck is supple with no tracheal deviation Chest/breast: wound is granulating well, no surrounding erythema noted Respiratory: Normal respiratory excursion and pattern. Abdominal exam: benign Extremities: no clubbing, cyanosis or edema. Neuro: non focal Psych: normal mood Assessment IMPRESSION: status post I&D of breast abscess PLAN: Continue dressing changes - dry gauze over wound. Patient is instructed to change dressings of the wound on a daily basis as follows. The patient is to take a daily shower and remove dressing at the time. Then the patient can clean wound with soap and water. Bleeding may occur from the granulation tissue and patient was told that this is normal. Dry area well and place gauze dressing over the wound and tape in place. Continue this until the skin has completely healed (that is - normal appearing skin) Patient is instructed to make an appointment to return to clinic if any worsening signs/symptoms. Patient will return to his PCP for medical care. Patient acknowledges above. The patient wishes to proceed. I have answered all questions to the patient s satisfaction and the patient has no further questions. I have confirmed and edited as necessary, the PFSH and ROS obtained by others. . Diagnoses: (Z98.890) Status post incision and drainage (primary encounter diagnosis) Return to Clinic: The patient is to follow up as above. I spent a total of 7 minutes on the date of the service which included preparing to see the patient with review of any pertinent laboratory studies/radiological imaging/medical records, [id number] patient care, obtaining oral medical history from the patient in this encounter, performing a medically appropriate examination, counseling and educating the patient/family/caregiver, and completing appropriate medical documentation. Kathryn Randhawa MD documented in this encounter [facility] 06-04-2022 Note HNO ID: [id number] Author: Kathryn Randhawa MD Service: ? Author Type: Physician Type: Progress Notes Filed: 06/04/2022 5:52 PM Note Text: FOLLOW UP VISIT NAME: Melisa Worthy CLINIC NO.: [id number] DATE OF SERVICE: 06/04/2022 : 1985 REFERRING PHYSICIAN: No primary care provider on file. Melisa is status post incision and drainage of right breast done on 05/30/2022. She is tolerating this well. VITALS: Blood pressure 114/80, pulse 83, temperature 36.4 ?C (97.5 ?F), resp. rate 14, height 157.5 cm (5' 2 ), weight 65 kg (143 lb 3.2 oz), last menstrual period 09/27/2017, SpO2 95 %. On examination, good granulation tissue in wound cavity. No further packing required. Assessment IMPRESSION: s/p IANDD of right breast PLAN: Patient is instructed to change dressings of the wound on a daily basis as follows. The patient is to take a daily shower and remove dressing at the time. Then the patient can clean wound with soap and water. Bleeding may occur from the granulation tissue and patient was told that this is normal. Dry area well and place gauze dressing over the wound and tape in place. Continue this until the skin has completely healed (that is - normal appearing skin) Patient is instructed to make an appointment to return to clinic if any worsening signs/symptoms. Patient will return to his PCP for medical care. Patient acknowledges above. Diagnoses: (Z98.890) Status post incision and drainage (primary encounter diagnosis) I have confirmed and edited as necessary, the PFSH and ROS obtained by others. Kathryn Randhawa MD [facility] 06-04-2022 History of Presen t illness Narrative FOLLOW UP VISIT NAME: Melisa Worthy [facility] NO.: [id number] DATE OF SERVICE: 06/04/2022 : 1985 REFERRING PHYSICIAN: No primary care provider on file. Melisa is status post incision and drainage of right breast done on 05/30/2022. She is tolerating this well. VITALS: Blood pressure 114/80, pulse 83, temperature 36.4 C (97.5 F), resp. rate 14, height 157.5 cm (5' 2 ), weight 65 kg (143 lb 3.2 oz), last menstrual period 09/27/2017, SpO2 95 %. On examination, good granulation tissue in wound cavity. No further packing required. Assessment IMPRESSION: s/p I&D of right breast PLAN: Patient is instructed to change dressings of the wound on a daily basis as follows. The patient is to take a daily shower and remove dressing at the time. Then the patient can clean wound with soap and water. Bleeding may occur from the granulation tissue and patient was told that this is normal. Dry area well and place gauze dressing over the wound and tape in place. Continue this until the skin has completely healed (that is - normal appearing skin) Patient is instructed to make an appointment to return to clinic if any worsening signs/symptoms. Patient will return to his PCP for medical care. Patient acknowledges above. Diagnoses: (Z98.890) Status post incision and drainage (primary encounter diagnosis) I have confirmed and edited as necessary, the PFSH and ROS obtained by others. Kathryn Randhawa MD documented in this encounter [facility] 06-01-2022 Note HNO ID: [id number] Author: Kathryn Randhawa MD Service: ? Author Type: Physician Type: Procedures Filed: 06/01/2022 4:07 PM Note Text: After informed consent was obtained, patient counseled to risks/benefits and agrees to proceed. Appropriate time out protocol was followed. Patient was placed in the supine position. The skin overlying the lesion (right breast) was cleansed with betadyne skin preparation. Sterile surgical drapes were placed. The skin and subcutaneous tissues around the lesion were infiltrated with 1% xylocaine with epinephrine A skin incision was made with a 15 blade scalpel overlying the lesion in a cruciate fashion. It was carried down to the subcutaneous tissues. There was a large amount of purulent fluid that emanated from the wound cavity. This was completely evacuated. There was nonviable fatty tissue and fibrinous exudate and senescent granulation tissue that was debrided. The wound cavity was cleaned with hydrogen peroxide. Loculations were broken down to allow for proper drainage. The cavity was 3 x 3 cm with a depth of 2 cm. Hemostasis was achieved by pressure. The wound was densely packed with saline soaked gauze. Dry gauze was placed over the wound and opsite dressing placed over this. Patient tolerated the procedure well. Complications: none EBL: minimal [facility] 06-01-2022 Procedure note After informed consent was obtained, patient counseled to risks/benefits and agrees to proceed. Appropriate time out protocol was followed. Patient was placed in the supine position. The skin overlying the lesion (right breast) was cleansed with betadyne skin preparation. Sterile surgical drapes were placed. The skin and subcutaneous tissues around the lesion were infiltrated with 1% xylocaine with epinephrine A skin incision was made with a 15 blade scalpel overlying the lesion in a cruciate fashion. It was carried down to the subcutaneous tissues. There was a large amount of purulent fluid that emanated from the wound cavity. This was completely evacuated. There was nonviable fatty tissue and fibrinous exudate and senescent granulation tissue that was debrided. The wound cavity was cleaned with hydrogen peroxide. Loculations were broken down to allow for proper drainage. The cavity was 3 x 3 cm with a depth of 2 cm. Hemostasis was achieved by pressure. The wound was densely packed with saline soaked gauze. Dry gauze was placed over the wound and opsite dressing placed over this. Patient tolerated the procedure well. Complications: none EBL: minimal documented in this encounter [facility] 05-30-2022 Note HNO ID: [id number] Author: Kathryn Randhawa MD Service: ? Author Type: Physician Type: Progress Notes Filed: 06/01/2022 4:07 PM Note Text: Melisa Worthy 1985 REFERRING PHYSICIAN: Self CHIEF COMPLAINT: Consult (Abscess on rt breast) HPI: The patient is a 36 year old female with complaint of right breast abscess. She had previous right breast abscess IANDD in 2019. She has noted the lesion for the past two days. She denies drainage. She has not been on antibiotics. She denies cigarettes use, but does admit to vaping. She denies fevers. 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 ALLERGIES: Pollen PERSONAL HISTORY: Social History Tobacco Use Smoking status: Former Packs/day: 1.00 Years: 9.00 Pack years: 9.00 Types: Cigarettes Smokeless tobacco: Never Vaping Use Vaping Use: current everyday user Substance Use Topics Alcohol use: Yes Alcohol/week: 0.0 standard drinks Comment: occas social Drug use: No FAMILY HISTORY Problem Relation Age of Onset Cancer Mother at 52 of ovarian CA primary with breast mets. Multiple Sclerosis Mother Hypertension Paternal Grandmother Heart Paternal Grandmother a fib Multiple Sclerosis Brother Colon Cancer Paternal Grandfather The review of systems data was entered by the nurse and reviewed by me Nursing Notes: Corrie Snyder RN 05/30/2022 3:48 PM Signed REVIEW OF SYSTEMS: General: The patient denies fatigue, denies weight loss, denies weight gain, denies feeling hot, and denies feelings of cold. Eyes: The patient denies glaucoma, denies eye injury/surgery, wears glasses or contacts. Ear/Nose/Throat: The patient NOTES allergies, denies hayfever, denies ear infections, and denies bloody noses. Cardiovascular: The patient denies chest pain, denies heart disease, denies high blood pressure,denies cardiac stent, denies prior heart attack, denies irregular heart beat, denies high cholesterol, denies poor circulation, denies heart failure, other cardiac issues, denies claudication, denies cold feet, denies peripheral arterial stent. Respiratory: The patient denies tuberculosis, denies pneumonia, denies frequent cough, denies pulmonary embolism, denies shortness of breath, and denies coughing up blood. Gastrointestinal: The patient denies difficulty swallowing, denies acid reflux, denies ulcers, denies vomiting, denies jaundice/hepatitis, denies gallbladder problems, denies black or tarry stools, denies hemorrhoids, denies bleeding from rectum, denies diverticulitis, denies constipation, denies diarrhea, denies loss of stool control, and denies hernias. Kidney/Bladder: The patient denies kidney stones, denies urine infections, and denies bloody urine. Skin: The patient denies a history of skin cancer, denies bleeding/changing moles, and denies a history of skin rash. Neurologic: The patient denies a history of epilepsy/convulsions, denies headaches, denies head/spinal injuries, and denies stroke/TIA. Psychiatric: The patient denies psychiatric medications, denies depression, and denies voices, denies substance abuse. Endocrine: The patient denies thyroid disorders, denies diabetes, and denies hormonal problems. Hematologic: The patient denies a history of bruising, denies bleeding, and denies anemia, denies blood clots. Infections: The patient denies a history of measles and mumps, denies rheumatic fever, and denies sexually transmitted diseases. Musculoskeletal: The patient denies back pain/injury, denies back problems, denies sciatica, denies knee/foot trouble, denies arthritis, or denies gout. When was patient's last Mammogram screening? 2017 Last Colonoscopy: none Corrie Snyder RN PHYSICAL EXAMINATION: General: The patient is 36 year old female, well nourished, well hydrated in no acute distress. The patient is oriented to time, place, and person. VITALS: Blood pressure 112/78, pulse 92, temperature 36.2 ?C (97.1 ?F), height 157.5 cm (5' 2 ), weight 63.7 kg (140 lb 6.4 oz), last menstrual period 09/27/2017, SpO2 96 %. Body mass index is 25.68 kg/m?. Head: Normal cephalic, atraumatic Eyes: pupils are equally round, sclera are clear/anicteric Neck is supple with no tracheal deviation Chest/Breast: right breast just superior to areola with pointing with purulent appearance comedo with surrounding erythema/swelling/tenderness/i ncreased skin temperature Respiratory: Normal respiratory excursion and pattern. Abdominal exam: benign (more content not included)... [facility] 05-30-2022 Note HNO ID: [id number] Author: Corrie Snyder RN Service: ? Author Type: Registered Nurse Type: Progress Notes Filed: 06/01/2022 4:07 PM Note Text: UNIVERSAL PROTOCOL / SAFETY CHECKLIST Procedure to be Performed: Incision and drainage of right breast abscess Sign In: A Moment of CARE was completed. Personnel directly involved with the procedure wore the appropriate PPE (Personal Protective Equipment). No special equipment needed. Patient/Surrogate Stated/Verified: PATIENT VERIFIED(optional for EMERGENT procedures): Patient name, Date of , Relevant allergies, and The intended procedure Time Out Communication: Intended patient and procedure match the source documents. Consent documented and matches the intended procedure. No relevant labs, photos, and/or imaging studies were applicable for review. Correct side/site marked and visible. Medications required for procedure verified. No fire risk assessment and interventions applicable. No implant(s) inserted. Sign Out: SIGN OUT (optional for EMERGENT procedures): No specimen collected. All instruments, equipment, possible retained foreign bodies accounted for. Post-procedure follow-up management communicated and Plan of Care Visit completed when applicable. Corrie Snyder RN [facility] 05-30-2022 History of Presen t illness Narrative Melisa Worthy 1985 REFERRING PHYSICIAN: Self CHIEF COMPLAINT: Consult (Abscess on rt breast) HPI: The patient is a 36 year old female with complaint of right breast abscess. She had previous right breast abscess I&D in 2019. She has noted the lesion for the past two days. She denies drainage. She has not been on antibiotics. She denies cigarettes use, but does admit to vaping. She denies fevers. 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 ALLERGIES: Pollen PERSONAL HISTORY: Social History Tobacco Use Smoking status: Former Packs/day: 1.00 Years: 9.00 Pack years: 9.00 Types: Cigarettes Smokeless tobacco: Never Vaping Use Vaping Use: current everyday user Substance Use Topics Alcohol use: Yes Alcohol/week: 0.0 standard drinks Comment: occas social Drug use: No FAMILY HISTORY Problem Relation Age of Onset Cancer Mother at 52 of ovarian CA primary with breast mets. Multiple Sclerosis Mother Hypertension Paternal Grandmother Heart Paternal Grandmother a fib Multiple Sclerosis Brother Colon Cancer Paternal Grandfather The review of systems data was entered by the nurse and reviewed by me Nursing Notes: Corrie Snyder RN 05/30/2022 3:48 PM Signed REVIEW OF SYSTEMS: General: The patient denies fatigue, denies weight loss, denies weight gain, denies feeling hot, and denies feelings of cold. Eyes: The patient denies glaucoma, denies eye injury/surgery, wears glasses or contacts. Ear/Nose/Throat: The patient NOTES allergies, denies hayfever, denies ear infections, and denies bloody noses. Cardiovascular: The patient denies chest pain, denies heart disease, denies high blood pressure,denies cardiac stent, denies prior heart attack, denies irregular heart beat, denies high cholesterol, denies poor circulation, denies heart failure, other cardiac issues, denies claudication, denies cold feet, denies peripheral arterial stent. Respiratory: The patient denies tuberculosis, denies pneumonia, denies frequent cough, denies pulmonary embolism, denies shortness of breath, and denies coughing up blood. Gastrointestinal: The patient denies difficulty swallowing, denies acid reflux, denies ulcers, denies vomiting, denies jaundice/hepatitis, denies gallbladder problems, denies black or tarry stools, denies hemorrhoids, denies bleeding from rectum, denies diverticulitis, denies constipation, denies diarrhea, denies loss of stool control, and denies hernias. Kidney/Bladder: The patient denies kidney stones, denies urine infections, and denies bloody urine. Skin: The patient denies a history of skin cancer, denies bleeding/changing moles, and denies a history of skin rash. Neurologic: The patient denies a history of epilepsy/convulsions, denies headaches, denies head/spinal injuries, and denies stroke/TIA. Psychiatric: The patient denies psychiatric medications, denies depression, and denies voices, denies substance abuse. Endocrine: The patient denies thyroid disorders, denies diabetes, and denies hormonal problems. Hematologic: The patient denies a history of bruising, denies bleeding, and denies anemia, denies blood clots. Infections: The patient denies a history of measles and mumps, denies rheumatic fever, and denies sexually transmitted diseases. Musculoskeletal: The patient denies back pain/injury, denies back problems, denies sciatica, denies knee/foot trouble, denies arthritis, or denies gout. When was patient's last Mammogram screening? 2017 Last Colonoscopy: none Corrie Snyder RN PHYSICAL EXAMINATION: General: The patient is 36 year old female, well nourished, well hydrated in no acute distress. The patient is oriented to time, place, and person. VITALS: Blood pressure 112/78, pulse 92, temperature 36.2 C (97.1 F), height 157.5 cm (5' 2 ), weight 63.7 kg (140 lb 6.4 oz), last menstrual period 09/27/2017, SpO2 96 %. Body mass index is 25.68 kg/m . Head: Normal cephalic, atraumatic Eyes: pupils are equally round, sclera are clear/anicteric Neck is supple with no tracheal deviation Chest/Breast: right breast just superior to areola with pointing with purulent appearance comedo with surrounding erythema/swelling/tenderness/i ncreased skin temperature Respiratory: Normal respiratory excursion and pattern. Abdominal exam: benign Extremities: no clubbing, cyanosis or edema. Neuro: non focal Psych: normal mood Assessment IMPRESSION: right breast abscess PLAN: I have discussed the above with the patient and her who is present with her I have offered incision and drainage of right breast abscess. I have explained the procedure to the patient. I have counseled the patient as to the risks of the procedure, including but not limited to: infection, bleeding, injury to any blood vessels/nerves, scar tissue, continued infection, complications of anesthesia, etc. - the patient understands. The patient wishes to proceed. I have answered all questions to the patient s satisfaction and the patient has no further questions. I have confirmed and edited as necessary, the PFSH and ROS obtained by others. . Diagnoses: (N61.1) Abscess of right breast (G89.18) Postoperative pain Return to Clinic: The patient is instructed to follow-up with me early next week for wound check. Medical Decision Making: Problems: Low: Acute, uncomplicated illness or injury Risk: Moderate: Moderate risk from testing/treatment Medical Decision Making Level: 3 - Low Kathryn Randhawa MD UNIVERSAL PROTOCOL / SAFETY CHECKLIST Procedure to be Performed: Incision and drainage of right breast abscess Sign In: A Moment of CARE was completed. Personnel directly involved with the procedure wore the appropriate PPE (Personal Protective Equipment). No special equipment needed. Patient/Surrogate Stated/Verified: PATIENT VERIFIED(optional for EMERGENT procedures): Patient name, Date of , Relevant allergies, and The intended procedure Time Out Communication: Intended patient and procedure match the source documents. Consent documented and matches the intended procedure. No relevant labs, photos, and/or imaging studies were applicable for review. Correct side/site marked and visible. Medications required for procedure verified. No fire risk assessment and interventions applicable. No implant(s) inserted. Sign Out: SIGN OUT (optional for EMERGENT procedures): No specimen collected. All instruments, equipment, possible retained foreign bodies accounted for. Post-procedure follow-up management communicated and Plan of Care Visit completed when applicable. Corrie Snyder RN documented in this encounter [facility] 05-30-2022 Instructions Corrie Snyder RN - 05/30/2022 4:15 PM EDT The following instructions are important for you related to your office visit today with the [facility] General Surgeons. Instructions After I & D You are instructed to return in 5 days for packing removal. We recommend that you take pain medication prior to packing removal. If the dressing becomes soaked or had significant drainage, the dressing should be reinforced. If there is minor bleeding from this skin edge, you should hold pressure on the incision. If there is continued bleeding, you should contact our office immediately. You may shower. The wound should not be immersed in a pool, bathtub, or even hot tub. If the wound shows signs of redness, inflammation, or purulent drainage, you should contact our office immediately. Please take Tylenol 1000 mg every 8 hours and alternate it with Ibuprofen 800 mg every 8 hours, so you are taking medication every 4 hours. You may take this in addition to your narcotic pain medication, even if that medication contains acetaminophen. If you note any additional difficulties, questions, or concerns, you should contact our office immediately @ [phone] and ask to be transferred to the General Surgery department. documented in this encounter [facility] 05-30-2022 Nurse Note REVIEW OF SYSTEMS: General: The patient denies fatigue, denies weight loss, denies weight gain, denies feeling hot, and denies feelings of cold. Eyes: The patient denies glaucoma, denies eye injury/surgery, wears glasses or contacts. Ear/Nose/Throat: The patient NOTES allergies, denies hayfever, denies ear infections, and denies bloody noses. Cardiovascular: The patient denies chest pain, denies heart disease, denies high blood pressure,denies cardiac stent, denies prior heart attack, denies irregular heart beat, denies high cholesterol, denies poor circulation, denies heart failure, other cardiac issues, denies claudication, denies cold feet, denies peripheral arterial stent. Respiratory: The patient denies tuberculosis, denies pneumonia, denies frequent cough, denies pulmonary embolism, denies shortness of breath, and denies coughing up blood. Gastrointestinal: The patient denies difficulty swallowing, denies acid reflux, denies ulcers, denies vomiting, denies jaundice/hepatitis, denies gallbladder problems, denies black or tarry stools, denies hemorrhoids, denies bleeding from rectum, denies diverticulitis, denies constipation, denies diarrhea, denies loss of stool control, and denies hernias. Kidney/Bladder: The patient denies kidney stones, denies urine infections, and denies bloody urine. Skin: The patient denies a history of skin cancer, denies bleeding/changing moles, and denies a history of skin rash. Neurologic: The patient denies a history of epilepsy/convulsions, denies headaches, denies head/spinal injuries, and denies stroke/TIA. Psychiatric: The patient denies psychiatric medications, denies depression, and denies voices, denies substance abuse. Endocrine: The patient denies thyroid disorders, denies diabetes, and denies hormonal problems. Hematologic: The patient denies a history of bruising, denies bleeding, and denies anemia, denies blood clots. Infections: The patient denies a history of measles and mumps, denies rheumatic fever, and denies sexually transmitted diseases. Musculoskeletal: The patient denies back pain/injury, denies back problems, denies sciatica, denies knee/foot trouble, denies arthritis, or denies gout. When was patient's last Mammogram screening? 2017 Last Colonoscopy: none Corrie Snyder RN documented in this encounter [facility] Status post incision and drainage- Primary [facility] Diagnosis Status post incision and drainage- Primary documented in this encounter [facility] Summary Purpose Family History No Family History Records FoundNo Family History Records Found Advance Directives No Advanced Directives Records FoundNo Advanced Directives Records Found Additional Source Comments INFORMATION SOURCE (unrecogn ized section and content) DATE CREATED AUTHOR AUTHOR'S ORGANIZ ATION 06/23/2022 [facility] Source Comments (unrecognize d section and content) In the event this informatio n is protected by the Federal Confidentiality of Alcohol and Drug Abuse Patient Records regulations: The Federal rules restrict any use of the information to criminally investigate or prosecute any alcohol or drug abuse patient.[facility] event this information is protected by the Federal Confidentiality of Alcohol and Drug Abuse Patient Records regulations: The Federal rules restrict any use of the information to criminally investigate or prosecute any alcohol or drug abuse patient.[facility] the event this information is protected by the Federal Confidentiality of Alcohol and Drug Abuse Patient Records regulations: The Federal rules restrict any use of the information to criminally investigate or prosecute any alcohol or drug abuse patient.[facility] Reason for Visit (unrecogniz ed section and content) Reason Comments Follow Up Breast abscess Reason Comments Follow Up Right breast abscess FOR RECORDS PERTAINING TO PATIENTS WHO ARE OR HAVE BEEN ENROLLED IN A CHEMICAL DEPENDENCY/SUBSTANCEABUSE PROGRAM, SOME INFORMATION MAY BE OMITTED. This clinical summary was aggregated from multiple sources. Caution should be exercised in using it in the provision of clinical care. This summary normalizes information from multiple sources, and as a consequence, information in this document may materially change the coding, format and clinical context of patient data. In addition, data may be omitted in some cases. CLINICAL DECISIONS SHOULD BE BASED ON THE PRIMARY CLINICAL RECORDS. [facility] [employer] [facility]. provides no warranty or guarantee of the accuracy or completeness of information in this document.
[2023-10-11 12:03] LABS: Absolute Lymphocyte Count 0.62 X10^3/uL (0.83-4.51); Absolute Neutrophil Count 2.9 X10^3/uL (2.0-7.7); Basophil# 0.02 X10^3/uL; Basophil% 0.5 % (0-1); Eosinophil# 0.04 X10^3/uL; Hematocrit 39.9 % (37-47); Hemoglobin 13.7 g/dL (12.0-15.0); Lymphocyte # 0.62 X10^3/ul (0.83-4.51); Lymphocyte % 15.8 % (19-41); Mean Corp Hgb Conc 34.3 g/dL (32-36); Mean Corpuscular Hgb 39.5 pg (27.0-32.0); Mean Platelet Vol. 9.8 fl (6.2-12.0); Monocyte# 0.36 X10^3/uL; Monocyte% 9.2 % (0-10); NRBC Flagged by Analyzer 0 % (0-5); Neutrophil # 2.88 X10^3/uL (2.7-7.7); Neutrophil % 73.2 % (47-70); Platelet Count 205 K/mm3 (150-450); RBC Distribution Width CV 12.1 % (11.6-14.6); RBC Distribution Width SD 51.2 fl (35.1-43.9); Red Blood Count 3.47 M/mm3 (4.2-5.4); White Blood Count 3.9 K/mm3 (4.4-11.0)
[2023-10-11 12:55] LABS: ALB/GLOB Ratio 1.2 RATIO (0.9-2.4); AST(SGOT) 169 U/L (15-37); Alanine Aminotransfer ALT/SGPT 136 U/L (13-56); Albumin, Serum 4.1 g/dL (3.2-5.0); Alkaline Phosphatase 71 U/L (45-117); Anion Gap 8 (5-15); BUN 8 mg/dL (7-18); BUN/Creat Ratio 12.5 RATIO (10-20); Calcium,Total 9.3 mg/dL (8.5-10.1); Chloride 103 mmol/L (98-107); Cholesterol 290 mg/dL (200); Creatinine, Serum 0.64 mg/dL (0.55-1.02); EST Glomerular Filtration Rate 110 mL/min (>60); Est Glom Filt Rate - Afr Amer 133 mL/min (>60); GGTP 808 U/L (5-55); Globulin 3.4 g/dL (2.2-4.2); Glucose 104 mg/dL (74-106); High Density Lipoprotein 153 mg/dL; Potassium 3.8 mmol/L (3.5-5.1); Protein, Total 7.5 g/dL (6.4-8.2); Sodium Level 137 mmol/L (136-145); Triglycerides 58 mg/dL; Very Low Density Lipoprotein 12 mg/dL (5-40)
== END | disposition home or self-care (01) ==
LOC: BFHLAB 09:54
PROVIDERS: PCP Family Medicine; Visit Provider Family Medicine
DX: Z00.00 Encounter for general adult medical examination without abnormal findings (principal); F10.90 Alcohol use, unspecified, uncomplicated; K21.9 Gastro-esophageal reflux disease without esophagitis; R10.9 Unspecified abdominal pain; E55.9 Vitamin D deficiency, unspecified
CPT/HCPCS: 36415; 80053; 80061; 82306; 82977; 84443; 85025